=== PATIENT | male | born 1985 | race Caucasian/White ===

== ENCOUNTER 2021-05-02 19:37 | Emergency (ER) ==
[2021-05-02] MEDS ORDERED: Dexamethasone 10 MG/ML VIAL ONE (20:56)
[2021-05-02] MEDS ORDERED: Acetaminophen 500 MG TAB ONE (20:56)
[2021-05-03 13:56] LABS: SARS-CoV-2 PCR by NAA DETECTED (NotDetected)
== END 2021-05-02 22:34 | disposition home or self-care (01) ==
LOC: ERS 19:37
DX: U07.1 COVID-19 (principal)
CPT/HCPCS: 99283; J1100; U0003; U0005

== ENCOUNTER 2021-05-04 11:32 | Inpatient (IN) | payer MEDICARE, SELFPAY ==
[~2021-05-04 11:32] MED LIST: Iopamidol-370 76% 500 ML 1 ML ONE
[2021-05-04] MEDS ORDERED: Dexamethasone 10 MG/ML VIAL ONE (12:03)
[2021-05-04 12:43] LABS: #Basophils 0.1 thou/uL (0.0-0.2); #Monocytes 0.7 thou/uL (0.11-0.59); #Neutrophils 6.9 thou/uL (1.40-6.50); %Basophils 0.6 % (0.0-1.0); %Eosinophils 0.1 % (0.0-10.0); %Lymphocytes 11.2 % (21.0-51.0); %Monocytes 8.2 % (0.0-10.0); %Neutrophils 79.9 % (42.0-75.0); Hemoglobin 17.2 g/dL (14.0-18.0); Mean Corpuscular HGB CONC 33.8 g/dL (32.0-36.0); Mean Corpuscular Hemoglobin 28.8 pg (27.0-31.0); Mean Corpuscular Volume 85.2 fL (78.0-98.0); Mean Platelet Volume 9.4 fL (7.4-10.4); Platelet Count 155 thou/uL (130-400); RBC Distribution Width 12.8 % (11.5-14.5); Red Blood Cell (RBC) Count 5.99 mill/uL (4.70-6.10); White Blood Cell (WBC) Count 8.6 thou/uL (4.8-10.8)
[2021-05-04 12:57] LABS: ALT (SGPT) 190 U/L (8-55); AST (SGOT) 156 U/L (5-34); Albumin 4.1 g/dL (3.5-5.0); Alkaline Phosphatase 87 U/L (40-110); Anion Gap 18 mmol/L (10-20); BUN (Urea Nitrogen) 15 mg/dL (8.9-20.6); Bilirubin, Total 0.9 mg/dL (0.2-1.2); Calc. Creatinine Clearance 0 mL/min (70-130); Calcium 9.7 mg/dL (7.8-10.44); Carbon Dioxide 25 mmol/L (22-29); Chloride 98 mmol/L (98-107); Globulin 3.4 g/dL (2.4-3.5); Glucose 103 mg/dL (70-105); Potassium 4.1 mmol/L (3.5-5.1); Protein, Total 7.5 g/dL (6.0-8.3); Sodium 137 mmol/L (136-145)
[2021-05-04] MEDS ORDERED: Ondansetron PF 4 MG/2 ML Vial IVP PRN (16:08)
[2021-05-04] MEDS: Sodium Chloride 0.9% 1,000 ML IV SCH (18:45)
[2021-05-04] MEDS: Ivermectin 3 MG TAB PO SCH (20:03)
[2021-05-04] MEDS: Cholecalciferol 1,000 UNITS (25 MCG) TAB PO SCH (20:03)
[2021-05-04] MEDS: Guaifenesin DM 100-10/5 ML UDCUP PO PRN (21:37)
[2021-05-05] MEDS: Albuterol 200 PUFF (6.7GM INHALER) INH SCH ×4 (00:10→18:10)
[2021-05-05] MEDS: methylPREDNISolone Sod Succ 40 MG VIAL IVP SCH ×2 (00:10→06:00)
[2021-05-05] MEDS: Acetaminophen 325 MG TAB PO PRN ×2 (00:11→21:39)
[2021-05-05 04:11] LABS: #Lymphocytes 0.9 thou/uL (1.20-3.40); #Monocytes 0.9 thou/uL (0.11-0.59); #Neutrophils 6.7 thou/uL (1.40-6.50); %Basophils 0.1 % (0.0-1.0); %Eosinophils 0.1 % (0.0-10.0); %Lymphocytes 10.7 % (21.0-51.0); %Monocytes 10.1 % (0.0-10.0); %Neutrophils 78.9 % (42.0-75.0); Hemoglobin 15.6 g/dL (14.0-18.0); Mean Corpuscular HGB CONC 35.3 g/dL (32.0-36.0); Mean Corpuscular Hemoglobin 30.2 pg (27.0-31.0); Mean Corpuscular Volume 85.5 fL (78.0-98.0); Mean Platelet Volume 9.5 fL (7.4-10.4); Platelet Count 144 thou/uL (130-400); RBC Distribution Width 12.6 % (11.5-14.5); Red Blood Cell (RBC) Count 5.16 mill/uL (4.70-6.10); White Blood Cell (WBC) Count 8.4 thou/uL (4.8-10.8)
[2021-05-05] MEDS: Guaifenesin DM 100-10/5 ML UDCUP PO PRN ×2 (04:30→21:39)
[2021-05-05] MEDS: Sodium Chloride 0.9% 1,000 ML IV SCH ×3 (04:30→21:40)
[2021-05-05 04:33] LABS: ALT (SGPT) 145 U/L (8-55); AST (SGOT) 107 U/L (5-34); Albumin 3.6 g/dL (3.5-5.0); Alkaline Phosphatase 81 U/L (40-110); Anion Gap 16 mmol/L (10-20); BUN (Urea Nitrogen) 14 mg/dL (8.9-20.6); Bilirubin, Total 0.6 mg/dL (0.2-1.2); Calc. Creatinine Clearance 186 mL/min (70-130); Calcium 8.5 mg/dL (7.8-10.44); Carbon Dioxide 20 mmol/L (22-29); Chloride 102 mmol/L (98-107); Glucose 127 mg/dL (70-105); Potassium 4.4 mmol/L (3.5-5.1); Protein, Total 6.6 g/dL (6.0-8.3); Sodium 134 mmol/L (136-145)
[2021-05-05] MEDS ORDERED: methylPREDNISolone Sod Succ 40 MG VIAL IVP SCH (09:00)
[2021-05-05] MEDS: guaiFENesin ER 600 MG TAB PO SCH ×2 (09:19→20:04)
[2021-05-05] MEDS: Zinc Sulfate 220 MG CAP PO SCH (09:20)
[2021-05-05] MEDS: Ascorbic Acid 500 mg Chewable Tablet PO SCH (09:20)
[2021-05-05] MEDS: Multivit, Therapeutic 1 TAB PO SCH (09:20)
[2021-05-05] MEDS: Enoxaparin Sodium 40 MG/0.4 ML SYRINGE SC SCH (09:20)
[2021-05-05] MEDS: METHYLPREDNISOLONE SOD SUCC IVPB SCH (11:18)
[2021-05-05] MEDS: SODIUM CHLORIDE 0.9% IVPB SCH (11:18)
[2021-05-05] MEDS: Ivermectin 3 MG TAB PO SCH (18:10)
[2021-05-05] MEDS: Cholecalciferol 1,000 UNITS (25 MCG) TAB PO SCH (20:04)
[2021-05-06] MEDS: Guaifenesin DM 100-10/5 ML UDCUP PO PRN ×3 (01:25→20:36)
[2021-05-06] MEDS: Albuterol 200 PUFF (6.7GM INHALER) INH SCH ×4 (01:52→20:38)
[2021-05-06 03:48] LABS: #Lymphocytes 0.8 thou/uL (1.20-3.40); #Monocytes 1.4 thou/uL (0.11-0.59); #Neutrophils 10.3 thou/uL (1.40-6.50); %Basophils 0.1 % (0.0-1.0); %Eosinophils 0.1 % (0.0-10.0); %Lymphocytes 6.5 % (21.0-51.0); %Monocytes 11.1 % (0.0-10.0); %Neutrophils 82.1 % (42.0-75.0); Hemoglobin 14.4 g/dL (14.0-18.0); Mean Corpuscular HGB CONC 35.2 g/dL (32.0-36.0); Mean Corpuscular Hemoglobin 29.9 pg (27.0-31.0); Mean Platelet Volume 9.1 fL (7.4-10.4); Platelet Count 184 thou/uL (130-400); RBC Distribution Width 12.8 % (11.5-14.5); Red Blood Cell (RBC) Count 4.82 mill/uL (4.70-6.10); White Blood Cell (WBC) Count 12.6 thou/uL (4.8-10.8)
[2021-05-06 04:13] LABS: ALT (SGPT) 104 U/L (8-55); AST (SGOT) 74 U/L (5-34); Albumin 3.2 g/dL (3.5-5.0); Alkaline Phosphatase 70 U/L (40-110); Anion Gap 12 mmol/L (10-20); BUN (Urea Nitrogen) 14 mg/dL (8.9-20.6); Bilirubin, Total 0.6 mg/dL (0.2-1.2); CRP (Inflammatory) 0.69 mg/dL (= or < 0.5); Calc. Creatinine Clearance 201 mL/min (70-130); Calcium 7.9 mg/dL (7.8-10.44); Carbon Dioxide 23 mmol/L (22-29); Chloride 107 mmol/L (98-107); Globulin 2.6 g/dL (2.4-3.5); Glucose 144 mg/dL (70-105); Potassium 4.2 mmol/L (3.5-5.1); Protein, Total 5.8 g/dL (6.0-8.3); Sodium 138 mmol/L (136-145)
[2021-05-06] MEDS: Ascorbic Acid 500 mg Chewable Tablet PO SCH (07:53)
[2021-05-06] MEDS: Zinc Sulfate 220 MG CAP PO SCH (07:53)
[2021-05-06] MEDS: Multivit, Therapeutic 1 TAB PO SCH (07:53)
[2021-05-06] MEDS: guaiFENesin ER 600 MG TAB PO SCH ×2 (07:54→20:19)
[2021-05-06] MEDS: Enoxaparin Sodium 40 MG/0.4 ML SYRINGE SC SCH (07:55)
[2021-05-06] MEDS: Sodium Chloride 0.9% 1,000 ML IV SCH ×2 (07:55→10:20)
[2021-05-06] MEDS: SODIUM CHLORIDE 0.9% IVPB SCH (10:20)
[2021-05-06] MEDS: METHYLPREDNISOLONE SOD SUCC IVPB SCH (10:20)
[2021-05-06] MEDS: Ivermectin 3 MG TAB PO SCH (18:17)
[2021-05-06] MEDS ORDERED: Budesonide 0.5 MG/2 ML NEB NEB SCH (18:30)
[2021-05-06] MEDS: Cholecalciferol 1,000 UNITS (25 MCG) TAB PO SCH (20:18)
[2021-05-06] MEDS: Melatonin 3 MG TAB PO SCH (20:18)
[2021-05-06] MEDS: Famotidine 20 MG TAB PO SCH (20:19)
[2021-05-06] MEDS: Acetaminophen 325 MG TAB PO PRN (22:03)
[2021-05-07] MEDS: Albuterol 200 PUFF (6.7GM INHALER) INH SCH ×4 (01:02→17:26)
[2021-05-07] MEDS: Guaifenesin DM 100-10/5 ML UDCUP PO PRN ×2 (03:02→20:50)
[2021-05-07] MEDS: Sodium Chloride 0.65% Nasal 44 ML BOT EA NARE PRN ×2 (03:04→20:50)
[2021-05-07 04:17] LABS: Band 3 % (5-11); Hemoglobin 13.8 g/dL (14.0-18.0); Hypochromia SLIGHT = 6-15 cells (100X) (0-5/hpf); Lymphocytes 12 % (21-51); MDiff Complete? YES; Mean Corpuscular Hemoglobin 29.5 pg (27.0-31.0); Mean Corpuscular Volume 86.8 fL (78.0-98.0); Mean Platelet Volume 8.4 fL (7.4-10.4); Monocytes 10 % (0-10); Neutrophil 75 % (42-75); Platelet Count 216 thou/uL (130-400); Platelet Morphology Comment Appears Adequate; RBC Distribution Width 12.8 % (11.5-14.5); Red Blood Cell (RBC) Count 4.68 mill/uL (4.70-6.10); White Blood Cell (WBC) Count 14.9 thou/uL (4.8-10.8)
[2021-05-07 04:23] LABS: ALT (SGPT) 120 U/L (8-55); AST (SGOT) 82 U/L (5-34); Albumin 3.1 g/dL (3.5-5.0); Alkaline Phosphatase 78 U/L (40-110); Anion Gap 16 mmol/L (10-20); BUN (Urea Nitrogen) 15 mg/dL (8.9-20.6); Bilirubin, Total 0.7 mg/dL (0.2-1.2); Calc. Creatinine Clearance 192 mL/min (70-130); Carbon Dioxide 21 mmol/L (22-29); Chloride 108 mmol/L (98-107); Globulin 2.7 g/dL (2.4-3.5); Glucose 125 mg/dL (70-105); Potassium 4.2 mmol/L (3.5-5.1); Protein, Total 5.8 g/dL (6.0-8.3); Sodium 141 mmol/L (136-145)
[2021-05-07] MEDS ORDERED: Mometasone 100 MCG/PUFF (1 INHALER) INH SCH (06:30)
[2021-05-07] MEDS: Zinc Sulfate 220 MG CAP PO SCH (07:39)
[2021-05-07] MEDS: Ivermectin 3 MG TAB PO SCH (07:39)
[2021-05-07] MEDS: Famotidine 20 MG TAB PO SCH ×2 (07:39→20:49)
[2021-05-07] MEDS: Aspirin 325 MG TAB PO SCH (07:40)
[2021-05-07] MEDS: Ascorbic Acid 500 mg Chewable Tablet PO SCH (07:40)
[2021-05-07] MEDS: guaiFENesin ER 600 MG TAB PO SCH ×2 (07:40→20:49)
[2021-05-07] MEDS: Multivit, Therapeutic 1 TAB PO SCH (07:40)
[2021-05-07] MEDS: Enoxaparin Sodium 40 MG/0.4 ML SYRINGE SC SCH (07:41)
[2021-05-07] MEDS: METHYLPREDNISOLONE SOD SUCC IVPB SCH (09:23)
[2021-05-07] MEDS: SODIUM CHLORIDE 0.9% IVPB SCH ×2 (09:23→20:34)
[2021-05-07] MEDS ORDERED: Piperacillin/Tazobactam 3.375 GM in Sodium Chloride 0.9% 100 ML IVPB SCH (18:00)
[2021-05-07] MEDS: ASCORBIC ACID IVPB SCH (20:34)
[2021-05-07] MEDS: Melatonin 3 MG TAB PO SCH (20:35)
[2021-05-07] MEDS: Cholecalciferol 1,000 UNITS (25 MCG) TAB PO SCH (20:50)
[2021-05-07] MEDS: Colchicine 0.6 MG TAB PO SCH (20:51)
[2021-05-07] MEDS: Piperacillin/Tazobactam 3.375 GM in Sodium Chloride 0.9% 100 ML IVPB SCH (21:25)
[2021-05-08] MEDS: Albuterol 200 PUFF (6.7GM INHALER) INH SCH ×4 (01:37→18:08)
[2021-05-08] MEDS: Furosemide 40 MG/4 ML VIAL SLOW IVP SCH ×2 (05:48→14:35)
[2021-05-08] MEDS: Piperacillin/Tazobactam 3.375 GM in Sodium Chloride 0.9% 100 ML IVPB SCH ×3 (06:31→21:53)
[2021-05-08] MEDS: Aspirin 325 MG TAB PO SCH (09:54)
[2021-05-08] MEDS: METHYLPREDNISOLONE SOD SUCC IVPB SCH (09:54)
[2021-05-08] MEDS: Enoxaparin Sodium 40 MG/0.4 ML SYRINGE SC SCH ×2 (09:54→21:52)
[2021-05-08] MEDS: SODIUM CHLORIDE 0.9% IVPB SCH ×2 (09:54→11:10)
[2021-05-08] MEDS: Colchicine 0.6 MG TAB PO SCH ×2 (09:54→21:52)
[2021-05-08] MEDS: Multivit, Therapeutic 1 TAB PO SCH (09:55)
[2021-05-08] MEDS: guaiFENesin ER 600 MG TAB PO SCH ×2 (09:55→21:51)
[2021-05-08] MEDS: Famotidine 20 MG TAB PO SCH ×2 (09:55→21:52)
[2021-05-08] MEDS: Zinc Sulfate 220 MG CAP PO SCH (09:55)
[2021-05-08] MEDS: ASCORBIC ACID IVPB SCH (11:10)
[2021-05-08] MEDS: Ivermectin 3 MG TAB PO SCH (11:49)
[2021-05-08] MEDS: Melatonin 3 MG TAB PO SCH (21:51)
[2021-05-08] MEDS: Cholecalciferol 1,000 UNITS (25 MCG) TAB PO SCH (21:52)
[2021-05-08] MEDS: Ascorbic Acid 500 mg Chewable Tablet PO SCH (21:52)
[2021-05-08] MEDS: Acetaminophen 325 MG TAB PO PRN (22:18)
[2021-05-09] MEDS: Albuterol 200 PUFF (6.7GM INHALER) INH SCH ×4 (01:43→18:22)
[2021-05-09] MEDS: Piperacillin/Tazobactam 3.375 GM in Sodium Chloride 0.9% 100 ML IVPB SCH ×3 (06:11→21:12)
[2021-05-09] MEDS: Furosemide 40 MG/4 ML VIAL SLOW IVP SCH ×2 (06:11→14:27)
[2021-05-09] MEDS: Zinc Sulfate 220 MG CAP PO SCH (08:27)
[2021-05-09] MEDS: Famotidine 20 MG TAB PO SCH ×2 (08:27→21:10)
[2021-05-09] MEDS: Enoxaparin Sodium 40 MG/0.4 ML SYRINGE SC SCH ×2 (08:27→21:09)
[2021-05-09] MEDS: Aspirin 325 MG TAB PO SCH (08:27)
[2021-05-09] MEDS: guaiFENesin ER 600 MG TAB PO SCH ×2 (08:27→21:10)
[2021-05-09] MEDS: Ascorbic Acid 500 mg Chewable Tablet PO SCH ×2 (08:27→21:10)
[2021-05-09] MEDS: Colchicine 0.6 MG TAB PO SCH ×2 (08:27→21:11)
[2021-05-09] MEDS: Multivit, Therapeutic 1 TAB PO SCH (08:27)
[2021-05-09] MEDS: SODIUM CHLORIDE 0.9% IVPB SCH (09:36)
[2021-05-09] MEDS: METHYLPREDNISOLONE SOD SUCC IVPB SCH (09:36)
[2021-05-09] MEDS: Melatonin 3 MG TAB PO SCH (21:09)
[2021-05-09] MEDS: Cholecalciferol 1,000 UNITS (25 MCG) TAB PO SCH (21:11)
[2021-05-10] MEDS: Albuterol 200 PUFF (6.7GM INHALER) INH SCH ×4 (00:27→20:28)
[2021-05-10] MEDS: Furosemide 40 MG/4 ML VIAL SLOW IVP SCH ×2 (06:04→13:46)
[2021-05-10] MEDS: Piperacillin/Tazobactam 3.375 GM in Sodium Chloride 0.9% 100 ML IVPB SCH ×3 (06:05→22:30)
[2021-05-10] MEDS: SODIUM CHLORIDE 0.9% IVPB SCH (07:10)
[2021-05-10] MEDS: METHYLPREDNISOLONE SOD SUCC IVPB SCH (07:10)
[2021-05-10] MEDS: Ascorbic Acid 500 mg Chewable Tablet PO SCH ×2 (08:04→20:28)
[2021-05-10] MEDS: guaiFENesin ER 600 MG TAB PO SCH ×2 (08:04→20:30)
[2021-05-10] MEDS: Zinc Sulfate 220 MG CAP PO SCH (08:04)
[2021-05-10] MEDS: Multivit, Therapeutic 1 TAB PO SCH (08:04)
[2021-05-10] MEDS: Aspirin 325 MG TAB PO SCH (08:04)
[2021-05-10] MEDS: Enoxaparin Sodium 40 MG/0.4 ML SYRINGE SC SCH ×2 (08:04→20:30)
[2021-05-10] MEDS: Colchicine 0.6 MG TAB PO SCH ×2 (08:04→20:29)
[2021-05-10] MEDS: Famotidine 20 MG TAB PO SCH ×2 (08:04→20:29)
[2021-05-10] MEDS ORDERED: Polyethylene Glycol 3350 17 GM Packet PO PRN (09:03)
[2021-05-10] MEDS: Docusate 100 MG CAP PO SCH ×2 (12:17→20:30)
[2021-05-10] MEDS: Melatonin 3 MG TAB PO SCH (20:29)
[2021-05-10] MEDS: Cholecalciferol 1,000 UNITS (25 MCG) TAB PO SCH (20:30)
[2021-05-11] MEDS: Albuterol 200 PUFF (6.7GM INHALER) INH SCH ×4 (04:56→19:30)
[2021-05-11] MEDS: Piperacillin/Tazobactam 3.375 GM in Sodium Chloride 0.9% 100 ML IVPB SCH ×3 (06:06→21:00)
[2021-05-11 08:58] LABS: #Basophils 0.1 thou/uL (0.0-0.2); #Lymphocytes 0.5 thou/uL (1.20-3.40); #Monocytes 1.5 thou/uL (0.11-0.59); #Neutrophils 11.7 thou/uL (1.40-6.50); %Basophils 0.9 % (0.0-1.0); %Lymphocytes 3.9 % (21.0-51.0); %Monocytes 10.6 % (0.0-10.0); %Neutrophils 84.6 % (42.0-75.0); Hemoglobin 15.7 g/dL (14.0-18.0); Mean Corpuscular HGB CONC 33.7 g/dL (32.0-36.0); Mean Corpuscular Hemoglobin 28.9 pg (27.0-31.0); Mean Corpuscular Volume 85.6 fL (78.0-98.0); Mean Platelet Volume 8.7 fL (7.4-10.4); Platelet Count 377 thou/uL (130-400); RBC Distribution Width 12.9 % (11.5-14.5); Red Blood Cell (RBC) Count 5.44 mill/uL (4.70-6.10); White Blood Cell (WBC) Count 13.8 thou/uL (4.8-10.8)
[2021-05-11 09:18] LABS: Anion Gap 15 mmol/L (10-20); BUN (Urea Nitrogen) 22 mg/dL (8.9-20.6); Calc. Creatinine Clearance 174 mL/min (70-130); Calcium 8.6 mg/dL (7.8-10.44); Carbon Dioxide 26 mmol/L (22-29); Chloride 103 mmol/L (98-107); Glucose 122 mg/dL (70-105); Potassium 4.4 mmol/L (3.5-5.1); Sodium 140 mmol/L (136-145)
[2021-05-11] MEDS: guaiFENesin ER 600 MG TAB PO SCH ×2 (09:26→20:59)
[2021-05-11] MEDS: Ascorbic Acid 500 mg Chewable Tablet PO SCH ×2 (09:26→20:58)
[2021-05-11] MEDS: Aspirin 325 MG TAB PO SCH (09:26)
[2021-05-11] MEDS: Famotidine 20 MG TAB PO SCH ×2 (09:26→20:59)
[2021-05-11] MEDS: Colchicine 0.6 MG TAB PO SCH ×2 (09:26→20:58)
[2021-05-11] MEDS: Multivit, Therapeutic 1 TAB PO SCH (09:26)
[2021-05-11] MEDS: Zinc Sulfate 220 MG CAP PO SCH (09:26)
[2021-05-11] MEDS: Docusate 100 MG CAP PO SCH ×2 (09:26→20:59)
[2021-05-11] MEDS: Enoxaparin Sodium 40 MG/0.4 ML SYRINGE SC SCH ×2 (09:26→20:58)
[2021-05-11] MEDS: METHYLPREDNISOLONE SOD SUCC IVPB SCH (09:27)
[2021-05-11] MEDS: SODIUM CHLORIDE 0.9% IVPB SCH (09:27)
[2021-05-11] MEDS: Melatonin 3 MG TAB PO SCH (20:59)
[2021-05-11] MEDS: Cholecalciferol 1,000 UNITS (25 MCG) TAB PO SCH (20:59)
[2021-05-12] MEDS: Albuterol 200 PUFF (6.7GM INHALER) INH SCH ×4 (00:30→20:00)
[2021-05-12 03:58] LABS: #Basophils 0.1 thou/uL (0.0-0.2); #Lymphocytes 0.6 thou/uL (1.20-3.40); #Monocytes 1.3 thou/uL (0.11-0.59); #Neutrophils 13.2 thou/uL (1.40-6.50); %Basophils 0.5 % (0.0-1.0); %Lymphocytes 3.6 % (21.0-51.0); %Monocytes 8.4 % (0.0-10.0); %Neutrophils 87.4 % (42.0-75.0); Mean Corpuscular HGB CONC 33.6 g/dL (32.0-36.0); Mean Corpuscular Hemoglobin 28.9 pg (27.0-31.0); Mean Corpuscular Volume 85.9 fL (78.0-98.0); Mean Platelet Volume 8.9 fL (7.4-10.4); Platelet Count 363 thou/uL (130-400); RBC Distribution Width 12.8 % (11.5-14.5); Red Blood Cell (RBC) Count 5.19 mill/uL (4.70-6.10)
[2021-05-12 04:16] LABS: Anion Gap 14 mmol/L (10-20); BUN (Urea Nitrogen) 19 mg/dL (8.9-20.6); Calc. Creatinine Clearance 189 mL/min (70-130); Calcium 8.5 mg/dL (7.8-10.44); Carbon Dioxide 23 mmol/L (22-29); Chloride 106 mmol/L (98-107); Glucose 122 mg/dL (70-105); Potassium 4.7 mmol/L (3.5-5.1); Sodium 138 mmol/L (136-145)
[2021-05-12] MEDS: Piperacillin/Tazobactam 3.375 GM in Sodium Chloride 0.9% 100 ML IVPB SCH ×3 (06:36→20:59)
[2021-05-12] MEDS: Zinc Sulfate 220 MG CAP PO SCH (07:48)
[2021-05-12] MEDS: Ascorbic Acid 500 mg Chewable Tablet PO SCH ×2 (07:48→20:58)
[2021-05-12] MEDS: Docusate 100 MG CAP PO SCH ×2 (07:48→20:56)
[2021-05-12] MEDS: Colchicine 0.6 MG TAB PO SCH ×2 (07:48→20:58)
[2021-05-12] MEDS: Multivit, Therapeutic 1 TAB PO SCH (07:48)
[2021-05-12] MEDS: Famotidine 20 MG TAB PO SCH ×2 (07:48→20:56)
[2021-05-12] MEDS: Enoxaparin Sodium 40 MG/0.4 ML SYRINGE SC SCH ×2 (07:49→20:55)
[2021-05-12] MEDS: guaiFENesin ER 600 MG TAB PO SCH ×2 (07:49→20:58)
[2021-05-12] MEDS: Aspirin 325 MG TAB PO SCH (07:49)
[2021-05-12] MEDS: SODIUM CHLORIDE 0.9% IVPB SCH (07:49)
[2021-05-12] MEDS: METHYLPREDNISOLONE SOD SUCC IVPB SCH (07:49)
[2021-05-12] MEDS: Cholecalciferol 1,000 UNITS (25 MCG) TAB PO SCH (20:57)
[2021-05-12] MEDS: Melatonin 3 MG TAB PO SCH (20:57)
[2021-05-13] MEDS: Albuterol 200 PUFF (6.7GM INHALER) INH SCH ×4 (02:53→20:09)
[2021-05-13 03:41] LABS: #Basophils 0.1 thou/uL (0.0-0.2); #Lymphocytes 0.5 thou/uL (1.20-3.40); #Neutrophils 13.6 thou/uL (1.40-6.50); %Basophils 0.6 % (0.0-1.0); %Eosinophils 0.1 % (0.0-10.0); %Lymphocytes 3.1 % (21.0-51.0); %Monocytes 6.4 % (0.0-10.0); %Neutrophils 89.8 % (42.0-75.0); Hemoglobin 15.1 g/dL (14.0-18.0); Mean Corpuscular HGB CONC 31.8 g/dL (32.0-36.0); Mean Corpuscular Hemoglobin 27.5 pg (27.0-31.0); Mean Corpuscular Volume 86.5 fL (78.0-98.0); Platelet Count 374 thou/uL (130-400); RBC Distribution Width 13.1 % (11.5-14.5); White Blood Cell (WBC) Count 15.1 thou/uL (4.8-10.8)
[2021-05-13 04:00] LABS: Anion Gap 14 mmol/L (10-20); BUN (Urea Nitrogen) 19 mg/dL (8.9-20.6); Calc. Creatinine Clearance 170 mL/min (70-130); Calcium 8.7 mg/dL (7.8-10.44); Carbon Dioxide 23 mmol/L (22-29); Chloride 105 mmol/L (98-107); Glucose 115 mg/dL (70-105); Potassium 4.9 mmol/L (3.5-5.1); Sodium 137 mmol/L (136-145)
[2021-05-13] MEDS: guaiFENesin ER 600 MG TAB PO SCH ×2 (07:17→20:12)
[2021-05-13] MEDS: Famotidine 20 MG TAB PO SCH ×2 (07:17→20:12)
[2021-05-13] MEDS: Enoxaparin Sodium 40 MG/0.4 ML SYRINGE SC SCH ×2 (07:17→20:13)
[2021-05-13] MEDS: Docusate 100 MG CAP PO SCH ×2 (07:18→20:12)
[2021-05-13] MEDS: Multivit, Therapeutic 1 TAB PO SCH (07:18)
[2021-05-13] MEDS: Ascorbic Acid 500 mg Chewable Tablet PO SCH ×2 (07:18→20:12)
[2021-05-13] MEDS: Aspirin 325 MG TAB PO SCH (07:18)
[2021-05-13] MEDS: Zinc Sulfate 220 MG CAP PO SCH (07:18)
[2021-05-13] MEDS: Colchicine 0.6 MG TAB PO SCH ×2 (07:18→20:13)
[2021-05-13] MEDS: SODIUM CHLORIDE 0.9% IVPB SCH (07:18)
[2021-05-13] MEDS: METHYLPREDNISOLONE SOD SUCC IVPB SCH (07:18)
[2021-05-13] MEDS: Melatonin 3 MG TAB PO SCH (20:10)
[2021-05-13] MEDS: Cholecalciferol 1,000 UNITS (25 MCG) TAB PO SCH (20:11)
[2021-05-14] MEDS: Albuterol 200 PUFF (6.7GM INHALER) INH SCH ×4 (01:20→18:19)
[2021-05-14 03:57] LABS: #Lymphocytes 0.4 thou/uL (1.20-3.40); #Monocytes 1.2 thou/uL (0.11-0.59); #Neutrophils 17.3 thou/uL (1.40-6.50); %Basophils 0.2 % (0.0-1.0); %Eosinophils 0.1 % (0.0-10.0); %Lymphocytes 2.3 % (21.0-51.0); %Monocytes 6.3 % (0.0-10.0); %Neutrophils 91.2 % (42.0-75.0); Hemoglobin 15.4 g/dL (14.0-18.0); Mean Corpuscular HGB CONC 33.3 g/dL (32.0-36.0); Mean Corpuscular Hemoglobin 28.7 pg (27.0-31.0); Mean Corpuscular Volume 86.4 fL (78.0-98.0); Platelet Count 382 thou/uL (130-400); RBC Distribution Width 13.3 % (11.5-14.5); Red Blood Cell (RBC) Count 5.35 mill/uL (4.70-6.10)
[2021-05-14 04:23] LABS: Anion Gap 14 mmol/L (10-20); BUN (Urea Nitrogen) 19 mg/dL (8.9-20.6); Calc. Creatinine Clearance 200 mL/min (70-130); Calcium 8.5 mg/dL (7.8-10.44); Carbon Dioxide 22 mmol/L (22-29); Chloride 105 mmol/L (98-107); Glucose 119 mg/dL (70-105); Potassium 4.6 mmol/L (3.5-5.1); Sodium 136 mmol/L (136-145)
[2021-05-14] MEDS: SODIUM CHLORIDE 0.9% IVPB SCH (06:36)
[2021-05-14] MEDS: METHYLPREDNISOLONE SOD SUCC IVPB SCH (06:36)
[2021-05-14] MEDS: Colchicine 0.6 MG TAB PO SCH ×2 (08:46→20:15)
[2021-05-14] MEDS: Multivit, Therapeutic 1 TAB PO SCH (08:46)
[2021-05-14] MEDS: Aspirin 325 MG TAB PO SCH (08:46)
[2021-05-14] MEDS: Zinc Sulfate 220 MG CAP PO SCH (08:46)
[2021-05-14] MEDS: Famotidine 20 MG TAB PO SCH ×2 (08:46→20:15)
[2021-05-14] MEDS: Docusate 100 MG CAP PO SCH ×2 (08:46→20:15)
[2021-05-14] MEDS: guaiFENesin ER 600 MG TAB PO SCH ×2 (08:46→20:15)
[2021-05-14] MEDS: Ascorbic Acid 500 mg Chewable Tablet PO SCH ×2 (08:47→20:14)
[2021-05-14] MEDS: Enoxaparin Sodium 40 MG/0.4 ML SYRINGE SC SCH ×2 (08:47→20:13)
[2021-05-14] MEDS: Cholecalciferol 1,000 UNITS (25 MCG) TAB PO SCH (20:14)
[2021-05-14] MEDS: Melatonin 3 MG TAB PO SCH (20:15)
[2021-05-15] MEDS: Albuterol 200 PUFF (6.7GM INHALER) INH SCH ×4 (01:34→18:37)
[2021-05-15 04:01] LABS: #Lymphocytes 0.6 thou/uL (1.20-3.40); #Monocytes 1.3 thou/uL (0.11-0.59); %Basophils 0.2 % (0.0-1.0); %Eosinophils 0.1 % (0.0-10.0); %Lymphocytes 2.9 % (21.0-51.0); %Monocytes 7.1 % (0.0-10.0); %Neutrophils 89.7 % (42.0-75.0); Hemoglobin 14.9 g/dL (14.0-18.0); Mean Corpuscular HGB CONC 32.5 g/dL (32.0-36.0); Mean Corpuscular Hemoglobin 27.9 pg (27.0-31.0); Mean Corpuscular Volume 85.7 fL (78.0-98.0); Mean Platelet Volume 9.2 fL (7.4-10.4); Platelet Count 405 thou/uL (130-400); RBC Distribution Width 13.6 % (11.5-14.5); Red Blood Cell (RBC) Count 5.34 mill/uL (4.70-6.10)
[2021-05-15 04:25] LABS: Anion Gap 15 mmol/L (10-20); BUN (Urea Nitrogen) 19 mg/dL (8.9-20.6); Calc. Creatinine Clearance 208 mL/min (70-130); Calcium 8.7 mg/dL (7.8-10.44); Carbon Dioxide 21 mmol/L (22-29); Chloride 106 mmol/L (98-107); Glucose 122 mg/dL (70-105); Potassium 4.6 mmol/L (3.5-5.1); Sodium 137 mmol/L (136-145)
[2021-05-15] MEDS: SODIUM CHLORIDE 0.9% IVPB SCH (05:30)
[2021-05-15] MEDS: METHYLPREDNISOLONE SOD SUCC IVPB SCH (05:30)
[2021-05-15] MEDS: Colchicine 0.6 MG TAB PO SCH ×2 (10:43→20:34)
[2021-05-15] MEDS: guaiFENesin ER 600 MG TAB PO SCH ×2 (10:43→20:35)
[2021-05-15] MEDS: Multivit, Therapeutic 1 TAB PO SCH (10:43)
[2021-05-15] MEDS: Famotidine 20 MG TAB PO SCH ×2 (10:43→20:36)
[2021-05-15] MEDS: Aspirin 325 MG TAB PO SCH (10:43)
[2021-05-15] MEDS: Docusate 100 MG CAP PO SCH ×2 (10:44→20:36)
[2021-05-15] MEDS: Ascorbic Acid 500 mg Chewable Tablet PO SCH ×2 (10:44→20:35)
[2021-05-15] MEDS: Ivermectin 3 MG TAB PO SCH (10:44)
[2021-05-15] MEDS: Zinc Sulfate 220 MG CAP PO SCH (10:44)
[2021-05-15] MEDS: Enoxaparin Sodium 40 MG/0.4 ML SYRINGE SC SCH ×2 (10:44→20:36)
[2021-05-15] MEDS: Cholecalciferol 1,000 UNITS (25 MCG) TAB PO SCH (20:34)
[2021-05-15] MEDS: Melatonin 3 MG TAB PO SCH (20:35)
[2021-05-16] MEDS: Albuterol 200 PUFF (6.7GM INHALER) INH SCH ×5 (01:26→23:49)
[2021-05-16 04:04] LABS: Anion Gap 14 mmol/L (10-20); BUN (Urea Nitrogen) 19 mg/dL (8.9-20.6); Calc. Creatinine Clearance 211 mL/min (70-130); Calcium 8.7 mg/dL (7.8-10.44); Carbon Dioxide 23 mmol/L (22-29); Chloride 105 mmol/L (98-107); Glucose 115 mg/dL (70-105); Potassium 4.5 mmol/L (3.5-5.1); Sodium 137 mmol/L (136-145)
[2021-05-16 04:59] LABS: Band 2 % (5-11); Hemoglobin 15.5 g/dL (14.0-18.0); Lymphocytes 3 % (21-51); MDiff Complete? YES; Mean Corpuscular Hemoglobin 28.7 pg (27.0-31.0); Mean Corpuscular Volume 86.9 fL (78.0-98.0); Mean Platelet Volume 9.2 fL (7.4-10.4); Monocytes 11 % (0-10); Myelocyte 1 % (0-0); Neutrophil 83 % (42-75); Platelet Count 379 thou/uL (130-400); RBC Distribution Width 13.8 % (11.5-14.5); Red Blood Cell (RBC) Count 5.38 mill/uL (4.70-6.10); White Blood Cell (WBC) Count 18.3 thou/uL (4.8-10.8)
[2021-05-16] MEDS: SODIUM CHLORIDE 0.9% IVPB SCH (05:23)
[2021-05-16] MEDS: METHYLPREDNISOLONE SOD SUCC IVPB SCH (05:23)
[2021-05-16] MEDS: Aspirin 325 MG TAB PO SCH (08:54)
[2021-05-16] MEDS: Ascorbic Acid 500 mg Chewable Tablet PO SCH ×2 (08:54→21:15)
[2021-05-16] MEDS: Famotidine 20 MG TAB PO SCH ×2 (08:54→21:16)
[2021-05-16] MEDS: Docusate 100 MG CAP PO SCH ×2 (08:54→21:16)
[2021-05-16] MEDS: Zinc Sulfate 220 MG CAP PO SCH (08:54)
[2021-05-16] MEDS: guaiFENesin ER 600 MG TAB PO SCH ×2 (08:54→21:16)
[2021-05-16] MEDS: Multivit, Therapeutic 1 TAB PO SCH (08:54)
[2021-05-16] MEDS: Enoxaparin Sodium 40 MG/0.4 ML SYRINGE SC SCH ×2 (08:54→21:16)
[2021-05-16] MEDS: Colchicine 0.6 MG TAB PO SCH ×2 (08:54→21:16)
[2021-05-16] MEDS: Cholecalciferol 1,000 UNITS (25 MCG) TAB PO SCH (21:15)
[2021-05-16] MEDS: Melatonin 3 MG TAB PO SCH (21:16)
[2021-05-17 06:19] LABS: Anion Gap 11 mmol/L (10-20); BUN (Urea Nitrogen) 19 mg/dL (8.9-20.6); Calc. Creatinine Clearance 189 mL/min (70-130); Calcium 8.6 mg/dL (7.8-10.44); Carbon Dioxide 25 mmol/L (22-29); Chloride 104 mmol/L (98-107); Glucose 116 mg/dL (70-105); Potassium 4.4 mmol/L (3.5-5.1); Sodium 136 mmol/L (136-145)
[2021-05-17 06:20] LABS: #Basophils 0.1 thou/uL (0.0-0.2); #Lymphocytes 0.6 thou/uL (1.20-3.40); #Monocytes 1.3 thou/uL (0.11-0.59); %Basophils 0.6 % (0.0-1.0); %Eosinophils 0.3 % (0.0-10.0); %Lymphocytes 3.5 % (21.0-51.0); %Monocytes 7.7 % (0.0-10.0); Hemoglobin 15.1 g/dL (14.0-18.0); Mean Corpuscular HGB CONC 32.5 g/dL (32.0-36.0); Mean Corpuscular Hemoglobin 28.4 pg (27.0-31.0); Mean Corpuscular Volume 87.4 fL (78.0-98.0); Mean Platelet Volume 9.4 fL (7.4-10.4); Platelet Count 352 thou/uL (130-400); RBC Distribution Width 14.2 % (11.5-14.5); White Blood Cell (WBC) Count 17.1 thou/uL (4.8-10.8)
[2021-05-17] MEDS: Albuterol 200 PUFF (6.7GM INHALER) INH SCH ×3 (08:32→18:44)
[2021-05-17] MEDS: Ascorbic Acid 500 mg Chewable Tablet PO SCH ×2 (09:29→20:49)
[2021-05-17] MEDS: Famotidine 20 MG TAB PO SCH ×2 (09:30→20:49)
[2021-05-17] MEDS: Zinc Sulfate 220 MG CAP PO SCH (09:30)
[2021-05-17] MEDS: Aspirin 325 MG TAB PO SCH (09:30)
[2021-05-17] MEDS: Multivit, Therapeutic 1 TAB PO SCH (09:31)
[2021-05-17] MEDS: guaiFENesin ER 600 MG TAB PO SCH ×2 (09:32→20:48)
[2021-05-17] MEDS: Docusate 100 MG CAP PO SCH ×2 (09:32→20:50)
[2021-05-17] MEDS: Enoxaparin Sodium 40 MG/0.4 ML SYRINGE SC SCH ×2 (09:32→20:48)
[2021-05-17] MEDS: Colchicine 0.6 MG TAB PO SCH ×2 (09:35→20:49)
[2021-05-17] MEDS: SODIUM CHLORIDE 0.9% IVPB SCH (09:36)
[2021-05-17] MEDS: METHYLPREDNISOLONE SOD SUCC IVPB SCH (09:36)
[2021-05-17] MEDS: Cholecalciferol 1,000 UNITS (25 MCG) TAB PO SCH (20:49)
[2021-05-17] MEDS: Melatonin 3 MG TAB PO SCH (20:49)
[2021-05-17] MEDS: Calcium Carbonate 500 MG ChewTAB PO PRN (20:50)
[2021-05-17] MEDS: Guaifenesin DM 100-10/5 ML UDCUP PO PRN (20:51)
[2021-05-18] MEDS: Albuterol 200 PUFF (6.7GM INHALER) INH SCH ×3 (01:09→14:49)
[2021-05-18] MEDS: SODIUM CHLORIDE 0.9% IVPB SCH (03:51)
[2021-05-18] MEDS: METHYLPREDNISOLONE SOD SUCC IVPB SCH (03:51)
[2021-05-18 03:54] LABS: #Eosinphils 0.1 thou/uL (0.0-0.7); #Lymphocytes 0.9 thou/uL (1.20-3.40); #Monocytes 1.6 thou/uL (0.11-0.59); #Neutrophils 16.9 thou/uL (1.40-6.50); %Basophils 0.2 % (0.0-1.0); %Eosinophils 0.3 % (0.0-10.0); %Lymphocytes 4.5 % (21.0-51.0); %Monocytes 8.2 % (0.0-10.0); %Neutrophils 86.8 % (42.0-75.0); Hemoglobin 15.3 g/dL (14.0-18.0); Mean Corpuscular HGB CONC 33.2 g/dL (32.0-36.0); Mean Corpuscular Hemoglobin 28.8 pg (27.0-31.0); Mean Corpuscular Volume 86.7 fL (78.0-98.0); Platelet Count 325 thou/uL (130-400); RBC Distribution Width 13.9 % (11.5-14.5); Red Blood Cell (RBC) Count 5.31 mill/uL (4.70-6.10); White Blood Cell (WBC) Count 19.5 thou/uL (4.8-10.8)
[2021-05-18 04:15] LABS: Anion Gap 13 mmol/L (10-20); BUN (Urea Nitrogen) 16 mg/dL (8.9-20.6); Calc. Creatinine Clearance 199 mL/min (70-130); Calcium 8.7 mg/dL (7.8-10.44); Carbon Dioxide 24 mmol/L (22-29); Chloride 105 mmol/L (98-107); Glucose 116 mg/dL (70-105); Potassium 4.2 mmol/L (3.5-5.1); Sodium 138 mmol/L (136-145)
[2021-05-18] MEDS: Acetaminophen 325 MG TAB PO PRN ×2 (09:36→15:23)
[2021-05-18] MEDS: Zinc Sulfate 220 MG CAP PO SCH (09:36)
[2021-05-18] MEDS: guaiFENesin ER 600 MG TAB PO SCH ×2 (09:36→21:48)
[2021-05-18] MEDS: Aspirin 325 MG TAB PO SCH (09:36)
[2021-05-18] MEDS: Colchicine 0.6 MG TAB PO SCH (09:36)
[2021-05-18] MEDS: Multivit, Therapeutic 1 TAB PO SCH (09:36)
[2021-05-18] MEDS: Famotidine 20 MG TAB PO SCH ×2 (09:36→21:48)
[2021-05-18] MEDS: Ascorbic Acid 500 mg Chewable Tablet PO SCH ×2 (09:36→21:40)
[2021-05-18] MEDS: Enoxaparin Sodium 40 MG/0.4 ML SYRINGE SC SCH ×2 (09:38→21:48)
[2021-05-18] MEDS: Docusate 100 MG CAP PO SCH ×2 (09:38→22:12)
[2021-05-18] MEDS ORDERED: Acetaminophen/Codeine 30-300mg Tablet PO PRN (13:38)
[2021-05-18] MEDS ORDERED: Benzonatate 100 MG CAP PO PRN ×2 (13:38→14:25)
[2021-05-18] MEDS: Cyclobenzaprine 10 MG TAB PO PRN (15:23)
[2021-05-18] MEDS: Guaifenesin DM 100-10/5 ML UDCUP PO PRN ×2 (15:24→22:51)
[2021-05-18] MEDS: Cholecalciferol 1,000 UNITS (25 MCG) TAB PO SCH (21:40)
[2021-05-18] MEDS: Melatonin 3 MG TAB PO SCH (21:45)
[2021-05-18] MEDS: Acetaminophen/Codeine 30-300mg Tablet PO PRN (23:12)
[2021-05-19 04:02] LABS: #Lymphocytes 0.6 thou/uL (1.20-3.40); #Monocytes 1.4 thou/uL (0.11-0.59); #Neutrophils 15.6 thou/uL (1.40-6.50); %Basophils 0.2 % (0.0-1.0); %Eosinophils 0.2 % (0.0-10.0); %Lymphocytes 3.5 % (21.0-51.0); %Monocytes 7.9 % (0.0-10.0); %Neutrophils 88.1 % (42.0-75.0); Hemoglobin 14.9 g/dL (14.0-18.0); Mean Corpuscular HGB CONC 32.4 g/dL (32.0-36.0); Mean Corpuscular Hemoglobin 28.5 pg (27.0-31.0); Mean Corpuscular Volume 87.8 fL (78.0-98.0); Mean Platelet Volume 9.1 fL (7.4-10.4); Platelet Count 303 thou/uL (130-400); RBC Distribution Width 14.5 % (11.5-14.5); Red Blood Cell (RBC) Count 5.22 mill/uL (4.70-6.10); White Blood Cell (WBC) Count 17.7 thou/uL (4.8-10.8)
[2021-05-19 04:19] LABS: Anion Gap 13 mmol/L (10-20); BUN (Urea Nitrogen) 15 mg/dL (8.9-20.6); Calc. Creatinine Clearance 194 mL/min (70-130); Calcium 8.6 mg/dL (7.8-10.44); Carbon Dioxide 22 mmol/L (22-29); Chloride 107 mmol/L (98-107); Glucose 114 mg/dL (70-105); Potassium 4.7 mmol/L (3.5-5.1); Sodium 137 mmol/L (136-145)
[2021-05-19] MEDS: METHYLPREDNISOLONE SOD SUCC IVPB SCH (06:53)
[2021-05-19] MEDS: SODIUM CHLORIDE 0.9% IVPB SCH (06:53)
[2021-05-19] MEDS: Docusate 100 MG CAP PO SCH ×2 (08:21→20:14)
[2021-05-19] MEDS: Multivit, Therapeutic 1 TAB PO SCH (08:21)
[2021-05-19] MEDS: Aspirin 325 MG TAB PO SCH (08:21)
[2021-05-19] MEDS: guaiFENesin ER 600 MG TAB PO SCH ×2 (08:21→20:13)
[2021-05-19] MEDS: Enoxaparin Sodium 40 MG/0.4 ML SYRINGE SC SCH ×2 (08:21→20:12)
[2021-05-19] MEDS: Colchicine 0.6 MG TAB PO SCH (08:21)
[2021-05-19] MEDS: Famotidine 20 MG TAB PO SCH ×2 (08:21→20:13)
[2021-05-19] MEDS: Guaifenesin DM 100-10/5 ML UDCUP PO PRN (08:22)
[2021-05-19] MEDS: Zinc Sulfate 220 MG CAP PO SCH (08:26)
[2021-05-19] MEDS: Ascorbic Acid 500 mg Chewable Tablet PO SCH ×2 (08:26→20:12)
[2021-05-19] MEDS: Acetaminophen/Codeine 30-300mg Tablet PO PRN (08:54)
[2021-05-19] MEDS ORDERED: Vancomycin 1 GM in Premix Bag 1 BAG IVPB SCH (11:00)
[2021-05-19 11:47] LABS: Actual Bicarbonate (HCO3a) 22.9 mEq/L (22-28); Base Excess (BEa) -0.9 mEq/L (-2.0 to +3.0); CO2 Tension 35.9 mmHg (35.0-45.0); Calcium, Ionized (arterial) 1.19 mmol/L (1.12-1.30); Hemoglobin (Hb) 16.4 g/dL (14.0-18.0); pH, Arterial 7.42 (7.35-7.45)
[2021-05-19 11:50] LABS: Puncture Site RRA
[2021-05-19 11:51] LABS: ALV-art Gradient 467.655 mmHg (0-20)
[2021-05-19] MEDS ORDERED: MEROPENEM 1 GM/50 ML 1 GM in Premix Bag 1 BAG IVPB SCH (12:00)
[2021-05-19] MEDS ORDERED: Meropenem 2 GM in Admixture Fee 1 EACH IVPB SCH (14:00)
[2021-05-19] MEDS: Vancomycin 1 GM in Premix Bag 1 BAG IVPB SCH (16:40)
[2021-05-19] MEDS: MEROPENEM 1 GM/50 ML 1 GM in Premix Bag 1 BAG IVPB SCH (20:12)
[2021-05-19] MEDS: Cholecalciferol 1,000 UNITS (25 MCG) TAB PO SCH (20:13)
[2021-05-19] MEDS: Melatonin 3 MG TAB PO SCH (20:13)
[2021-05-20] MEDS: Vancomycin 1 GM in Premix Bag 1 BAG IVPB SCH ×2 (03:07→15:12)
[2021-05-20] MEDS: MEROPENEM 1 GM/50 ML 1 GM in Premix Bag 1 BAG IVPB SCH ×3 (04:15→20:03)
[2021-05-20 05:42] LABS: #Eosinphils 0.1 thou/uL (0.0-0.7); #Lymphocytes 0.7 thou/uL (1.20-3.40); #Monocytes 1.3 thou/uL (0.11-0.59); %Basophils 0.2 % (0.0-1.0); %Eosinophils 0.4 % (0.0-10.0); %Lymphocytes 3.9 % (21.0-51.0); %Neutrophils 88.6 % (42.0-75.0); Hemoglobin 14.9 g/dL (14.0-18.0); Mean Corpuscular HGB CONC 32.7 g/dL (32.0-36.0); Mean Corpuscular Hemoglobin 28.8 pg (27.0-31.0); Mean Corpuscular Volume 88.1 fL (78.0-98.0); Mean Platelet Volume 9.5 fL (7.4-10.4); Platelet Count 282 thou/uL (130-400); RBC Distribution Width 14.8 % (11.5-14.5); Red Blood Cell (RBC) Count 5.17 mill/uL (4.70-6.10)
[2021-05-20 06:02] LABS: Anion Gap 12 mmol/L (10-20); BUN (Urea Nitrogen) 17 mg/dL (8.9-20.6); Calc. Creatinine Clearance 189 mL/min (70-130); Carbon Dioxide 27 mmol/L (22-29); Chloride 104 mmol/L (98-107); Glucose 115 mg/dL (70-105); Potassium 4.3 mmol/L (3.5-5.1); Sodium 139 mmol/L (136-145)
[2021-05-20] MEDS: Famotidine 20 MG TAB PO SCH ×2 (08:05→21:41)
[2021-05-20] MEDS: Multivit, Therapeutic 1 TAB PO SCH (08:06)
[2021-05-20] MEDS: Zinc Sulfate 220 MG CAP PO SCH (08:06)
[2021-05-20] MEDS: Ascorbic Acid 500 mg Chewable Tablet PO SCH ×2 (08:06→21:41)
[2021-05-20] MEDS: Docusate 100 MG CAP PO SCH ×2 (08:06→21:42)
[2021-05-20] MEDS: Enoxaparin Sodium 40 MG/0.4 ML SYRINGE SC SCH ×2 (08:07→21:42)
[2021-05-20] MEDS: guaiFENesin ER 600 MG TAB PO SCH ×2 (08:07→21:41)
[2021-05-20] MEDS: Aspirin 325 MG TAB PO SCH (08:10)
[2021-05-20] MEDS: Colchicine 0.6 MG TAB PO SCH (08:10)
[2021-05-20] MEDS: METHYLPREDNISOLONE SOD SUCC IVPB SCH (08:11)
[2021-05-20] MEDS: SODIUM CHLORIDE 0.9% IVPB SCH (08:11)
[2021-05-20] MEDS ORDERED: Lorazepam 1 MG TAB PO SCH (15:15)
[2021-05-20] MEDS: Melatonin 3 MG TAB PO SCH (21:41)
[2021-05-20] MEDS: Cholecalciferol 1,000 UNITS (25 MCG) TAB PO SCH (21:42)
[2021-05-21] MEDS: Vancomycin 1 GM in Premix Bag 1 BAG IVPB SCH ×2 (03:11→16:55)
[2021-05-21 04:09] LABS: Hemoglobin 15.2 g/dL (14.0-18.0); Mean Corpuscular HGB CONC 33.5 g/dL (32.0-36.0); Mean Corpuscular Hemoglobin 29.5 pg (27.0-31.0); Mean Corpuscular Volume 88.1 fL (78.0-98.0); Platelet Count 256 thou/uL (130-400); RBC Distribution Width 14.9 % (11.5-14.5); Red Blood Cell (RBC) Count 5.15 mill/uL (4.70-6.10); White Blood Cell (WBC) Count 19.1 thou/uL (4.8-10.8)
[2021-05-21 04:20] LABS: Anion Gap 11 mmol/L (10-20); BUN (Urea Nitrogen) 16 mg/dL (8.9-20.6); Calc. Creatinine Clearance 197 mL/min (70-130); Calcium 8.7 mg/dL (7.8-10.44); Carbon Dioxide 28 mmol/L (22-29); Chloride 103 mmol/L (98-107); Glucose 129 mg/dL (70-105); Potassium 4.4 mmol/L (3.5-5.1); Sodium 138 mmol/L (136-145)
[2021-05-21] MEDS: MEROPENEM 1 GM/50 ML 1 GM in Premix Bag 1 BAG IVPB SCH ×3 (04:27→20:14)
[2021-05-21 04:36] LABS: Lymphocytes 1 % (21-51); MDiff Complete? YES; Metamyelocyte 1 % (0-0); Monocytes 2 % (0-10); Neutrophil 94 % (42-75); Platelet Morphology Comment Appears Adequate; Reactive Lymphocytes 2 % (0-10)
[2021-05-21] MEDS: Ascorbic Acid 500 mg Chewable Tablet PO SCH ×2 (08:25→21:01)
[2021-05-21] MEDS: Colchicine 0.6 MG TAB PO SCH (08:26)
[2021-05-21] MEDS: Zinc Sulfate 220 MG CAP PO SCH (08:26)
[2021-05-21] MEDS: Multivit, Therapeutic 1 TAB PO SCH (08:26)
[2021-05-21] MEDS: Famotidine 20 MG TAB PO SCH ×2 (08:26→21:01)
[2021-05-21] MEDS: Docusate 100 MG CAP PO SCH ×2 (08:26→21:02)
[2021-05-21] MEDS: Aspirin 325 MG TAB PO SCH (08:26)
[2021-05-21] MEDS: Enoxaparin Sodium 40 MG/0.4 ML SYRINGE SC SCH ×2 (08:26→21:00)
[2021-05-21] MEDS: guaiFENesin ER 600 MG TAB PO SCH ×2 (08:27→21:00)
[2021-05-21] MEDS: METHYLPREDNISOLONE SOD SUCC IVPB SCH (08:29)
[2021-05-21] MEDS: SODIUM CHLORIDE 0.9% IVPB SCH (08:29)
[2021-05-21] MEDS: Cholecalciferol 1,000 UNITS (25 MCG) TAB PO SCH (21:00)
[2021-05-21] MEDS: Melatonin 3 MG TAB PO SCH (21:00)
[2021-05-21] MEDS: clonazePAM 0.5 MG TAB PO SCH (21:02)
[2021-05-22] MEDS: Vancomycin 1 GM in Premix Bag 1 BAG IVPB SCH (03:44)
[2021-05-22 04:04] LABS: Band 3 % (5-11); Hemoglobin 16.6 g/dL (14.0-18.0); Lymphocytes 3 % (21-51); MDiff Complete? YES; Mean Corpuscular HGB CONC 33.3 g/dL (32.0-36.0); Mean Corpuscular Hemoglobin 29.3 pg (27.0-31.0); Mean Corpuscular Volume 87.9 fL (78.0-98.0); Monocytes 11 % (0-10); Neutrophil 82 % (42-75); Platelet Count 270 thou/uL (130-400); Platelet Morphology Comment Appears Adequate; RBC Morphology Normal; Reactive Lymphocytes 1 % (0-10); Red Blood Cell (RBC) Count 5.67 mill/uL (4.70-6.10); White Blood Cell (WBC) Count 21.6 thou/uL (4.8-10.8)
[2021-05-22 04:14] LABS: Anion Gap 14 mmol/L (10-20); BUN (Urea Nitrogen) 20 mg/dL (8.9-20.6); Calc. Creatinine Clearance 190 mL/min (70-130); Calcium 9.1 mg/dL (7.8-10.44); Carbon Dioxide 26 mmol/L (22-29); Chloride 103 mmol/L (98-107); Glucose 111 mg/dL (70-105); Potassium 4.4 mmol/L (3.5-5.1); Sodium 139 mmol/L (136-145)
[2021-05-22] MEDS: MEROPENEM 1 GM/50 ML 1 GM in Premix Bag 1 BAG IVPB SCH ×3 (04:50→20:00)
[2021-05-22] MEDS: Enoxaparin Sodium 40 MG/0.4 ML SYRINGE SC SCH ×2 (09:14→20:08)
[2021-05-22] MEDS: clonazePAM 0.5 MG TAB PO SCH (09:15)
[2021-05-22] MEDS: Docusate 100 MG CAP PO SCH ×2 (09:15→20:09)
[2021-05-22] MEDS: guaiFENesin ER 600 MG TAB PO SCH ×2 (09:15→20:08)
[2021-05-22] MEDS: Multivit, Therapeutic 1 TAB PO SCH (09:15)
[2021-05-22] MEDS: Aspirin 325 MG TAB PO SCH (09:15)
[2021-05-22] MEDS: Famotidine 20 MG TAB PO SCH ×2 (09:15→20:07)
[2021-05-22] MEDS: Colchicine 0.6 MG TAB PO SCH (09:16)
[2021-05-22] MEDS: Zinc Sulfate 220 MG CAP PO SCH (09:16)
[2021-05-22] MEDS: SODIUM CHLORIDE 0.9% IVPB SCH (09:16)
[2021-05-22] MEDS: METHYLPREDNISOLONE SOD SUCC IVPB SCH (09:16)
[2021-05-22] MEDS: Ascorbic Acid 500 mg Chewable Tablet PO SCH ×2 (09:16→20:08)
[2021-05-22] MEDS: Ivermectin 3 MG TAB PO SCH (10:15)
[2021-05-22] MEDS ORDERED: Electrolyte Replacement Protocol 1 EACH FS ONE (10:55)
[2021-05-22] MEDS ORDERED: Propofol 1,000 MG/100 ML VIAL IV ONE (11:01)
[2021-05-22] MEDS ORDERED: Electrolyte Replacement Protocol FS PRN (11:15)
[2021-05-22] MEDS ORDERED: Lorazepam 2 MG/ML VIAL ONE ×2 (11:41→12:49)
[2021-05-22 11:44] LABS: Actual Bicarbonate (HCO3a) 25.1 mEq/L (22-28); Base Excess (BEa) 0.1 mEq/L (-2.0 to +3.0); Calcium, Ionized (arterial) 1.23 mmol/L (1.12-1.30); Carboxyhemoglobin (COHb) 0.5 gm% (0.0-3.0); Hemoglobin (Hb) 18.4 g/dL (14.0-18.0); Potassium - ABG Lab 4.85 mmol/L (3.70-5.30); pH, Arterial 7.39 (7.35-7.45)
[2021-05-22 11:47] LABS: Puncture Site RRA
[2021-05-22] MEDS ORDERED: fentaNYL Citrate/PF 2,000 MCG in Sodium Chloride 0.9% 60 ML IV SCH (13:30)
[2021-05-22] MEDS ORDERED: Propofol BOLUS 1,000 MG/100 ML VIAL IV PRN (13:30)
[2021-05-22] MEDS ORDERED: Fentanyl BOLUS 250 ML IVPB PRN (13:30)
[2021-05-22] MEDS ORDERED: DISCONTINUE PREVIOUS NARCOTIC PAIN MEDICATIONS AND BENZODIAZEPINES FS SCH (13:30)
[2021-05-22] MEDS ORDERED: Fentanyl CADD 100 ML ONE (13:31)
[2021-05-22] MEDS: Propofol 1,000 MG/100 ML VIAL IV PRN ×3 (14:07→22:54)
[2021-05-22] MEDS: Lorazepam 2 MG/ML VIAL SLOW IVP PRN (14:26)
[2021-05-22] MEDS: Vecuronium 10 MG VIAL IVP PRN ×2 (14:26→15:23)
[2021-05-22 16:37] LABS: Actual Bicarbonate (HCO3a) 26.4 mEq/L (22-28); Base Excess (BEa) 0.1 mEq/L (-2.0 to +3.0); CO2 Tension 48.7 mmHg (35.0-45.0); Calcium, Ionized (arterial) 1.23 mmol/L (1.12-1.30); Carboxyhemoglobin (COHb) 0.8 gm% (0.0-3.0); Hemoglobin (Hb) 16.1 g/dL (14.0-18.0); O2 Tension (PaO2), arterial 62.2 mmHg (80.0-100.0); Potassium - ABG Lab 4.91 mmol/L (3.70-5.30); pH, Arterial 7.35 (7.35-7.45)
[2021-05-22 16:45] LABS: Puncture Site RBA
[2021-05-22 16:46] LABS: ALV-art Gradient 411.675 mmHg (0-20)
[2021-05-22] MEDS: Cholecalciferol 1,000 UNITS (25 MCG) TAB PO SCH (20:08)
[2021-05-22] MEDS: Melatonin 3 MG TAB PO SCH (20:09)
[2021-05-23 03:32] LABS: #Lymphocytes 0.4 thou/uL (1.20-3.40); #Monocytes 1.3 thou/uL (0.11-0.59); #Neutrophils 14.7 thou/uL (1.40-6.50); %Basophils 0.1 % (0.0-1.0); %Eosinophils 0.1 % (0.0-10.0); %Lymphocytes 2.4 % (21.0-51.0); %Monocytes 8.1 % (0.0-10.0); %Neutrophils 89.4 % (42.0-75.0); Hemoglobin 14.9 g/dL (14.0-18.0); Mean Corpuscular Volume 87.8 fL (78.0-98.0); Mean Platelet Volume 9.2 fL (7.4-10.4); Platelet Count 199 thou/uL (130-400); RBC Distribution Width 14.9 % (11.5-14.5); Red Blood Cell (RBC) Count 5.16 mill/uL (4.70-6.10); White Blood Cell (WBC) Count 16.5 thou/uL (4.8-10.8)
[2021-05-23 03:38] LABS: Anion Gap 15 mmol/L (10-20); BUN (Urea Nitrogen) 23 mg/dL (8.9-20.6); Calc. Creatinine Clearance 166 mL/min (70-130); Calcium 8.6 mg/dL (7.8-10.44); Carbon Dioxide 26 mmol/L (22-29); Chloride 108 mmol/L (98-107); Glucose 115 mg/dL (70-105); Potassium 4.8 mmol/L (3.5-5.1); Sodium 144 mmol/L (136-145)
[2021-05-23] MEDS: MEROPENEM 1 GM/50 ML 1 GM in Premix Bag 1 BAG IVPB SCH ×3 (04:01→20:25)
[2021-05-23] MEDS: Propofol 1,000 MG/100 ML VIAL IV PRN ×4 (04:01→21:51)
[2021-05-23] MEDS ORDERED: Fentanyl CADD 100 ML ONE ×2 (06:44→21:05)
[2021-05-23 08:18] LABS: Actual Bicarbonate (HCO3a) 27.1 mEq/L (22-28); Base Excess (BEa) 2.6 mEq/L (-2.0 to +3.0); CO2 Tension 41.4 mmHg (35.0-45.0); Calcium, Ionized (arterial) 1.15 mmol/L (1.12-1.30); Carboxyhemoglobin (COHb) 1.1 gm% (0.0-3.0); Hemoglobin (Hb) 15.5 g/dL (14.0-18.0); O2 Tension (PaO2), arterial 60.6 mmHg (80.0-100.0); Potassium - ABG Lab 4.68 mmol/L (3.70-5.30); pH, Arterial 7.43 (7.35-7.45)
[2021-05-23] MEDS: Lorazepam 2 MG/ML VIAL SLOW IVP PRN (08:59)
[2021-05-23] MEDS: Ascorbic Acid 500 mg Chewable Tablet PO SCH ×2 (09:00→20:39)
[2021-05-23] MEDS: Docusate 100 MG CAP PO SCH ×2 (09:00→20:40)
[2021-05-23] MEDS: Multivit, Therapeutic 1 TAB PO SCH (09:01)
[2021-05-23] MEDS: Famotidine 20 MG TAB PO SCH ×2 (09:01→20:41)
[2021-05-23] MEDS: Zinc Sulfate 220 MG CAP PO SCH (09:01)
[2021-05-23] MEDS: Enoxaparin Sodium 40 MG/0.4 ML SYRINGE SC SCH ×2 (09:01→20:39)
[2021-05-23] MEDS: Aspirin 325 MG TAB PO SCH (09:12)
[2021-05-23] MEDS: Colchicine 0.6 MG TAB PO SCH ×2 (09:12→20:40)
[2021-05-23] MEDS ORDERED: PROPOFOL 200 MG/20 ML VIAL ONE (09:27)
[2021-05-23] MEDS ORDERED: Succinylcholine 200 MG/10 ml SYRINGE FS ONE (09:27)
[2021-05-23] MEDS ORDERED: Rocuronium Bromide 10 MG/ML (10ML VIAL) ONE (09:27)
[2021-05-23 09:56] LABS: Puncture Site RBA
[2021-05-23] MEDS: METHYLPREDNISOLONE SOD SUCC IVPB SCH (10:07)
[2021-05-23] MEDS: SODIUM CHLORIDE 0.9% IVPB SCH (10:07)
[2021-05-23] MEDS: guaiFENesin ER 600 MG TAB PO SCH ×2 (10:20→20:41)
[2021-05-23] MEDS: Acetaminophen 325 MG TAB PO PRN (11:46)
[2021-05-23] MEDS: Cholecalciferol 1,000 UNITS (25 MCG) TAB PO SCH (20:40)
[2021-05-23] MEDS: Melatonin 3 MG TAB PO SCH (20:40)
[2021-05-24] MEDS: Propofol 1,000 MG/100 ML VIAL IV PRN ×4 (02:04→20:07)
[2021-05-24 04:28] LABS: #Lymphocytes 0.4 thou/uL (1.20-3.40); #Monocytes 1.3 thou/uL (0.11-0.59); #Neutrophils 13.3 thou/uL (1.40-6.50); %Eosinophils 0.2 % (0.0-10.0); %Lymphocytes 2.7 % (21.0-51.0); %Monocytes 8.9 % (0.0-10.0); %Neutrophils 88.2 % (42.0-75.0); Hemoglobin 14.2 g/dL (14.0-18.0); Mean Corpuscular HGB CONC 32.5 g/dL (32.0-36.0); Mean Corpuscular Volume 89.3 fL (78.0-98.0); Platelet Count 151 thou/uL (130-400); RBC Distribution Width 15.1 % (11.5-14.5); Red Blood Cell (RBC) Count 4.91 mill/uL (4.70-6.10)
[2021-05-24] MEDS: MEROPENEM 1 GM/50 ML 1 GM in Premix Bag 1 BAG IVPB SCH ×3 (04:34→20:08)
[2021-05-24 04:50] LABS: Anion Gap 16 mmol/L (10-20); BUN (Urea Nitrogen) 22 mg/dL (8.9-20.6); Calc. Creatinine Clearance 192 mL/min (70-130); Calcium 8.7 mg/dL (7.8-10.44); Carbon Dioxide 25 mmol/L (22-29); Chloride 110 mmol/L (98-107); Glucose 140 mg/dL (70-105); Potassium 3.9 mmol/L (3.5-5.1); Sodium 147 mmol/L (136-145)
[2021-05-24 06:55] LABS: Actual Bicarbonate (HCO3a) 27.8 mEq/L (22-28); Base Excess (BEa) 3.5 mEq/L (-2.0 to +3.0); Calcium, Ionized (arterial) 1.19 mmol/L (1.12-1.30); Hemoglobin (Hb) 15.1 g/dL (14.0-18.0); Potassium - ABG Lab 3.85 mmol/L (3.70-5.30); pH, Arterial 7.45 (7.35-7.45)
[2021-05-24 06:57] LABS: O2 Tension (PaO2), arterial 54.1 mmHg (80.0-100.0); Puncture Site LRA
[2021-05-24] MEDS: Zinc Sulfate 220 MG CAP PO SCH (07:53)
[2021-05-24] MEDS: Multivit, Therapeutic 1 TAB PO SCH (07:53)
[2021-05-24] MEDS: Famotidine 20 MG TAB PO SCH ×2 (07:53→20:35)
[2021-05-24] MEDS: Ascorbic Acid 500 mg Chewable Tablet PO SCH ×2 (07:53→20:33)
[2021-05-24] MEDS: guaiFENesin ER 600 MG TAB PO SCH (07:53)
[2021-05-24] MEDS: Docusate 100 MG CAP PO SCH ×2 (07:53→20:35)
[2021-05-24] MEDS: Enoxaparin Sodium 40 MG/0.4 ML SYRINGE SC SCH ×2 (07:54→21:16)
[2021-05-24] MEDS: Aspirin 325 MG TAB PO SCH (07:56)
[2021-05-24] MEDS: Colchicine 0.6 MG TAB PO SCH ×2 (07:56→21:16)
[2021-05-24] MEDS: SODIUM CHLORIDE 0.9% IVPB SCH (08:35)
[2021-05-24] MEDS: METHYLPREDNISOLONE SOD SUCC IVPB SCH (08:35)
[2021-05-24] MEDS ORDERED: Fentanyl CADD 100 ML ONE (12:47)
[2021-05-24] MEDS ORDERED: EPINEPHrine 1 MG/10 ML Abboject SYRINGE ONE (16:05)
[2021-05-24] MEDS: GUAIFENESIN SF SOLN 200 MG/10 ML UDCUP PER TUBE SCH ×2 (19:40→21:16)
[2021-05-24] MEDS: Multivits W-Minerals Liquid 15 ML LIQ PER TUBE SCH (19:40)
[2021-05-24] MEDS: Melatonin 3 MG TAB PO SCH (20:30)
[2021-05-24] MEDS: Cholecalciferol 1,000 UNITS (25 MCG) TAB PO SCH (20:34)
[2021-05-25] MEDS: Propofol 1,000 MG/100 ML VIAL IV PRN ×6 (01:26→22:00)
[2021-05-25] MEDS: Lorazepam 2 MG/ML VIAL SLOW IVP PRN (02:50)
[2021-05-25] MEDS: MEROPENEM 1 GM/50 ML 1 GM in Premix Bag 1 BAG IVPB SCH ×3 (04:32→22:45)
[2021-05-25 04:40] LABS: #Lymphocytes 0.4 thou/uL (1.20-3.40); #Monocytes 1.1 thou/uL (0.11-0.59); #Neutrophils 13.3 thou/uL (1.40-6.50); %Basophils 0.1 % (0.0-1.0); %Eosinophils 0.2 % (0.0-10.0); %Lymphocytes 2.5 % (21.0-51.0); %Monocytes 7.1 % (0.0-10.0); %Neutrophils 90.1 % (42.0-75.0); Hemoglobin 14.3 g/dL (14.0-18.0); Mean Corpuscular Hemoglobin 29.5 pg (27.0-31.0); Mean Corpuscular Volume 89.4 fL (78.0-98.0); Mean Platelet Volume 9.2 fL (7.4-10.4); Platelet Count 140 thou/uL (130-400); RBC Distribution Width 14.9 % (11.5-14.5); Red Blood Cell (RBC) Count 4.85 mill/uL (4.70-6.10); White Blood Cell (WBC) Count 14.8 thou/uL (4.8-10.8)
[2021-05-25 05:01] LABS: Anion Gap 11 mmol/L (10-20); BUN (Urea Nitrogen) 18 mg/dL (8.9-20.6); Calc. Creatinine Clearance 203 mL/min (70-130); Calcium 8.8 mg/dL (7.8-10.44); Carbon Dioxide 29 mmol/L (22-29); Chloride 111 mmol/L (98-107); Glucose 119 mg/dL (70-105); Potassium 4.2 mmol/L (3.5-5.1); Sodium 147 mmol/L (136-145)
[2021-05-25] MEDS ORDERED: Fentanyl CADD 100 ML ONE ×2 (05:09→21:35)
[2021-05-25 06:49] LABS: Actual Bicarbonate (HCO3a) 27.7 mEq/L (22-28); Base Excess (BEa) 3.5 mEq/L (-2.0 to +3.0); CO2 Tension 40.4 mmHg (35.0-45.0); Carboxyhemoglobin (COHb) 0.7 gm% (0.0-3.0); Hemoglobin (Hb) 15.1 g/dL (14.0-18.0); O2 Tension (PaO2), arterial 60.4 mmHg (80.0-100.0); Potassium - ABG Lab 4.21 mmol/L (3.70-5.30); pH, Arterial 7.45 (7.35-7.45)
[2021-05-25 06:59] LABS: Puncture Site LBA
[2021-05-25] MEDS: Enoxaparin Sodium 40 MG/0.4 ML SYRINGE SC SCH ×2 (09:34→22:46)
[2021-05-25] MEDS: GUAIFENESIN SF SOLN 200 MG/10 ML UDCUP PER TUBE SCH ×2 (09:34→22:47)
[2021-05-25] MEDS: Ascorbic Acid 500 mg Chewable Tablet PO SCH ×2 (09:35→22:48)
[2021-05-25] MEDS: METHYLPREDNISOLONE SOD SUCC IVPB SCH (09:35)
[2021-05-25] MEDS: Famotidine 20 MG TAB PO SCH ×2 (09:35→22:48)
[2021-05-25] MEDS: Docusate 100 MG CAP PO SCH ×2 (09:35→22:49)
[2021-05-25] MEDS: Zinc Sulfate 220 MG CAP PO SCH (09:35)
[2021-05-25] MEDS: Aspirin 325 MG TAB PO SCH (09:35)
[2021-05-25] MEDS: Colchicine 0.6 MG TAB PO SCH ×2 (09:35→22:49)
[2021-05-25] MEDS: SODIUM CHLORIDE 0.9% IVPB SCH (09:35)
[2021-05-25] MEDS: Multivits W-Minerals Liquid 15 ML LIQ PER TUBE SCH (09:36)
[2021-05-25] MEDS: Cholecalciferol 1,000 UNITS (25 MCG) TAB PO SCH (22:47)
[2021-05-25] MEDS: Melatonin 3 MG TAB PO SCH (22:51)
[2021-05-26] MEDS: Propofol 1,000 MG/100 ML VIAL IV PRN ×2 (02:55→06:27)
[2021-05-26] MEDS: MEROPENEM 1 GM/50 ML 1 GM in Premix Bag 1 BAG IVPB SCH ×3 (03:46→20:56)
[2021-05-26 04:56] LABS: #Eosinphils 0.1 thou/uL (0.0-0.7); #Lymphocytes 0.5 thou/uL (1.20-3.40); #Monocytes 0.8 thou/uL (0.11-0.59); #Neutrophils 8.9 thou/uL (1.40-6.50); %Basophils 0.1 % (0.0-1.0); %Eosinophils 0.7 % (0.0-10.0); %Lymphocytes 5.1 % (21.0-51.0); %Monocytes 7.6 % (0.0-10.0); %Neutrophils 86.5 % (42.0-75.0); Mean Corpuscular HGB CONC 32.9 g/dL (32.0-36.0); Mean Corpuscular Hemoglobin 29.5 pg (27.0-31.0); Mean Corpuscular Volume 89.8 fL (78.0-98.0); Mean Platelet Volume 10.2 fL (7.4-10.4); Platelet Count 129 thou/uL (130-400); RBC Distribution Width 14.9 % (11.5-14.5); Red Blood Cell (RBC) Count 4.76 mill/uL (4.70-6.10); White Blood Cell (WBC) Count 10.3 thou/uL (4.8-10.8)
[2021-05-26 05:16] LABS: Anion Gap 13 mmol/L (10-20); BUN (Urea Nitrogen) 17 mg/dL (8.9-20.6); Calc. Creatinine Clearance 224 mL/min (70-130); Calcium 8.8 mg/dL (7.8-10.44); Carbon Dioxide 27 mmol/L (22-29); Chloride 110 mmol/L (98-107); Glucose 116 mg/dL (70-105); Potassium 4.3 mmol/L (3.5-5.1); Sodium 146 mmol/L (136-145)
[2021-05-26 07:16] LABS: Base Excess (BEa) 2.8 mEq/L (-2.0 to +3.0); CO2 Tension 44.8 mmHg (35.0-45.0); Calcium, Ionized (arterial) 1.21 mmol/L (1.12-1.30); Carboxyhemoglobin (COHb) 1.2 gm% (0.0-3.0); Hemoglobin (Hb) 15.6 g/dL (14.0-18.0); Potassium - ABG Lab 4.18 mmol/L (3.70-5.30); pH, Arterial 7.41 (7.35-7.45)
[2021-05-26 07:18] LABS: O2 Tension (PaO2), arterial 57.2 mmHg (80.0-100.0); Puncture Site LRA
[2021-05-26] MEDS: Colchicine 0.6 MG TAB PO SCH ×2 (08:38→20:57)
[2021-05-26] MEDS: GUAIFENESIN SF SOLN 200 MG/10 ML UDCUP PER TUBE SCH ×2 (08:38→20:57)
[2021-05-26] MEDS: Enoxaparin Sodium 40 MG/0.4 ML SYRINGE SC SCH ×2 (08:38→20:58)
[2021-05-26] MEDS: Zinc Sulfate 220 MG CAP PO SCH (08:39)
[2021-05-26] MEDS: Famotidine 20 MG TAB PO SCH ×2 (08:39→20:57)
[2021-05-26] MEDS: Docusate 100 MG CAP PO SCH ×2 (08:39→20:58)
[2021-05-26] MEDS: Ascorbic Acid 500 mg Chewable Tablet PO SCH ×2 (08:39→20:58)
[2021-05-26] MEDS: Aspirin 325 MG TAB PO SCH (08:39)
[2021-05-26] MEDS: METHYLPREDNISOLONE SOD SUCC IVPB SCH (08:40)
[2021-05-26] MEDS: SODIUM CHLORIDE 0.9% IVPB SCH (08:40)
[2021-05-26] MEDS: Multivits W-Minerals Liquid 15 ML LIQ PER TUBE SCH (08:40)
[2021-05-26] MEDS ORDERED: Fentanyl CADD 100 ML ONE (12:46)
[2021-05-26] MEDS: Lorazepam 2 MG/ML VIAL SLOW IVP PRN (17:12)
[2021-05-26] MEDS: Cholecalciferol 1,000 UNITS (25 MCG) TAB PO SCH (20:58)
[2021-05-26] MEDS: Melatonin 3 MG TAB PO SCH (20:58)
[2021-05-27] MEDS: MEROPENEM 1 GM/50 ML 1 GM in Premix Bag 1 BAG IVPB SCH (03:34)
[2021-05-27] MEDS ORDERED: Fentanyl CADD 0 ML ONE (04:34)
[2021-05-27 04:37] LABS: #Basophils 0.1 thou/uL (0.0-0.2); #Eosinphils 0.1 thou/uL (0.0-0.7); #Lymphocytes 0.6 thou/uL (1.20-3.40); #Monocytes 1.1 thou/uL (0.11-0.59); #Neutrophils 10.1 thou/uL (1.40-6.50); %Basophils 0.6 % (0.0-1.0); %Eosinophils 0.6 % (0.0-10.0); %Monocytes 9.1 % (0.0-10.0); %Neutrophils 84.8 % (42.0-75.0); Hemoglobin 14.9 g/dL (14.0-18.0); Mean Corpuscular HGB CONC 32.9 g/dL (32.0-36.0); Mean Corpuscular Hemoglobin 29.2 pg (27.0-31.0); Mean Corpuscular Volume 88.7 fL (78.0-98.0); Platelet Count 137 thou/uL (130-400); RBC Distribution Width 14.8 % (11.5-14.5); Red Blood Cell (RBC) Count 5.12 mill/uL (4.70-6.10); White Blood Cell (WBC) Count 11.9 thou/uL (4.8-10.8)
[2021-05-27 04:53] LABS: Anion Gap 13 mmol/L (10-20); BUN (Urea Nitrogen) 17 mg/dL (8.9-20.6); Calc. Creatinine Clearance 226 mL/min (70-130); Carbon Dioxide 27 mmol/L (22-29); Chloride 106 mmol/L (98-107); Glucose 110 mg/dL (70-105); Potassium 4.3 mmol/L (3.5-5.1); Sodium 142 mmol/L (136-145)
[2021-05-27] MEDS: Lorazepam 2 MG/ML VIAL SLOW IVP PRN ×2 (07:29→19:40)
[2021-05-27] MEDS: METHYLPREDNISOLONE SOD SUCC IVPB SCH (07:36)
[2021-05-27] MEDS: SODIUM CHLORIDE 0.9% IVPB SCH (07:36)
[2021-05-27] MEDS ORDERED: Furosemide 20 MG/2 ML VIAL SLOW IVP SCH (08:14)
[2021-05-27 08:15] LABS: Base Excess (BEa) 2.5 mEq/L (-2.0 to +3.0); CO2 Tension 33.1 mmHg (35.0-45.0); Calcium, Ionized (arterial) 1.19 mmol/L (1.12-1.30); Hemoglobin (Hb) 16.4 g/dL (14.0-18.0); Potassium - ABG Lab 4.47 mmol/L (3.70-5.30)
[2021-05-27 08:44] LABS: O2 Tension (PaO2), arterial 46.9 mmHg (80.0-100.0)
[2021-05-27 08:45] LABS: ALV-art Gradient 268.225 mmHg (0-20); Puncture Site LRA
[2021-05-27] MEDS: Multivits W-Minerals Liquid 15 ML LIQ PER TUBE SCH (09:05)
[2021-05-27] MEDS: GUAIFENESIN SF SOLN 200 MG/10 ML UDCUP PER TUBE SCH ×2 (09:05→20:22)
[2021-05-27] MEDS: Famotidine 20 MG TAB PO SCH ×2 (09:06→20:23)
[2021-05-27] MEDS: Aspirin 325 MG TAB PO SCH (09:06)
[2021-05-27] MEDS: Colchicine 0.6 MG TAB PO SCH ×2 (09:06→20:24)
[2021-05-27] MEDS: Ascorbic Acid 500 mg Chewable Tablet PO SCH ×2 (09:06→20:24)
[2021-05-27] MEDS: Enoxaparin Sodium 40 MG/0.4 ML SYRINGE SC SCH ×2 (09:06→20:22)
[2021-05-27] MEDS: Zinc Sulfate 220 MG CAP PO SCH (09:06)
[2021-05-27] MEDS: Docusate Sodium 100 MG/10 ML UDCUP PO SCH ×2 (10:40→20:24)
[2021-05-27] MEDS: Cholecalciferol 1,000 UNITS (25 MCG) TAB PO SCH (20:23)
[2021-05-27] MEDS: Melatonin 3 MG TAB PO SCH (20:23)
[2021-05-28] MEDS: Lorazepam 2 MG/ML VIAL SLOW IVP PRN ×4 (00:25→23:50)
[2021-05-28 04:51] LABS: #Basophils 0.1 thou/uL (0.0-0.2); #Lymphocytes 0.7 thou/uL (1.20-3.40); #Monocytes 1.1 thou/uL (0.11-0.59); #Neutrophils 10.3 thou/uL (1.40-6.50); %Basophils 0.4 % (0.0-1.0); %Eosinophils 0.4 % (0.0-10.0); %Monocytes 9.2 % (0.0-10.0); %Neutrophils 83.9 % (42.0-75.0); Hemoglobin 15.8 g/dL (14.0-18.0); Mean Corpuscular HGB CONC 33.5 g/dL (32.0-36.0); Mean Corpuscular Hemoglobin 29.5 pg (27.0-31.0); Mean Corpuscular Volume 88.1 fL (78.0-98.0); Mean Platelet Volume 10.4 fL (7.4-10.4); Platelet Count 127 thou/uL (130-400); RBC Distribution Width 14.8 % (11.5-14.5); Red Blood Cell (RBC) Count 5.35 mill/uL (4.70-6.10); White Blood Cell (WBC) Count 12.2 thou/uL (4.8-10.8)
[2021-05-28 05:11] LABS: Anion Gap 16 mmol/L (10-20); BUN (Urea Nitrogen) 21 mg/dL (8.9-20.6); Calc. Creatinine Clearance 217 mL/min (70-130); Calcium 9.2 mg/dL (7.8-10.44); Carbon Dioxide 24 mmol/L (22-29); Chloride 109 mmol/L (98-107); Glucose 130 mg/dL (70-105); Potassium 4.4 mmol/L (3.5-5.1); Sodium 145 mmol/L (136-145)
[2021-05-28] MEDS: METHYLPREDNISOLONE SOD SUCC IVPB SCH (05:28)
[2021-05-28] MEDS: SODIUM CHLORIDE 0.9% IVPB SCH (05:28)
[2021-05-28 08:09] LABS: Actual Bicarbonate (HCO3a) 21.7 mEq/L (22-28); CO2 Tension 31.3 mmHg (35.0-45.0); Calcium, Ionized (arterial) 1.19 mmol/L (1.12-1.30); Carboxyhemoglobin (COHb) 1.3 gm% (0.0-3.0); Hemoglobin (Hb) 16.9 g/dL (14.0-18.0); Potassium - ABG Lab 4.45 mmol/L (3.70-5.30); pH, Arterial 7.46 (7.35-7.45)
[2021-05-28 08:10] LABS: O2 Tension (PaO2), arterial 59.8 mmHg (80.0-100.0); Puncture Site LRA
[2021-05-28 08:11] LABS: ALV-art Gradient 257.575 mmHg (0-20)
[2021-05-28] MEDS: Ascorbic Acid 500 mg Chewable Tablet PO SCH ×2 (09:17→20:26)
[2021-05-28] MEDS: Docusate Sodium 100 MG/10 ML UDCUP PO SCH ×2 (09:17→20:25)
[2021-05-28] MEDS: Enoxaparin Sodium 40 MG/0.4 ML SYRINGE SC SCH ×2 (09:17→20:25)
[2021-05-28] MEDS: GUAIFENESIN SF SOLN 200 MG/10 ML UDCUP PER TUBE SCH ×2 (09:17→20:25)
[2021-05-28] MEDS: Aspirin 325 MG TAB PO SCH (09:17)
[2021-05-28] MEDS: Multivits W-Minerals Liquid 15 ML LIQ PER TUBE SCH (09:18)
[2021-05-28] MEDS: Zinc Sulfate 220 MG CAP PO SCH (09:18)
[2021-05-28] MEDS: Colchicine 0.6 MG TAB PO SCH ×2 (09:18→20:26)
[2021-05-28] MEDS: Famotidine 20 MG TAB PO SCH ×2 (09:18→20:26)
[2021-05-28] MEDS: Melatonin 3 MG TAB PO SCH (20:25)
[2021-05-28] MEDS: Cholecalciferol 1,000 UNITS (25 MCG) TAB PO SCH (20:26)
[2021-05-29] MEDS: Morphine 2 MG/ML VIAL SLOW IVP PRN ×3 (02:21→23:06)
[2021-05-29] MEDS: Lorazepam 2 MG/ML VIAL SLOW IVP PRN ×2 (02:59→20:40)
[2021-05-29] MEDS: METHYLPREDNISOLONE SOD SUCC IVPB SCH (04:42)
[2021-05-29] MEDS: SODIUM CHLORIDE 0.9% IVPB SCH (04:42)
[2021-05-29 05:13] LABS: #Eosinphils 0.1 thou/uL (0.0-0.7); #Lymphocytes 0.4 thou/uL (1.20-3.40); #Monocytes 1.2 thou/uL (0.11-0.59); #Neutrophils 11.2 thou/uL (1.40-6.50); %Basophils 0.2 % (0.0-1.0); %Eosinophils 0.5 % (0.0-10.0); %Lymphocytes 3.4 % (21.0-51.0); %Monocytes 9.4 % (0.0-10.0); %Neutrophils 86.4 % (42.0-75.0); Hemoglobin 15.3 g/dL (14.0-18.0); Mean Corpuscular HGB CONC 33.5 g/dL (32.0-36.0); Mean Corpuscular Hemoglobin 29.8 pg (27.0-31.0); Mean Platelet Volume 10.1 fL (7.4-10.4); Platelet Count 130 thou/uL (130-400); RBC Distribution Width 15.2 % (11.5-14.5); Red Blood Cell (RBC) Count 5.13 mill/uL (4.70-6.10)
[2021-05-29 05:32] LABS: Anion Gap 13 mmol/L (10-20); BUN (Urea Nitrogen) 22 mg/dL (8.9-20.6); Calc. Creatinine Clearance 223 mL/min (70-130); Calcium 9.1 mg/dL (7.8-10.44); Carbon Dioxide 25 mmol/L (22-29); Chloride 112 mmol/L (98-107); Glucose 113 mg/dL (70-105); Potassium 4.3 mmol/L (3.5-5.1); Sodium 146 mmol/L (136-145)
[2021-05-29 07:17] LABS: Actual Bicarbonate (HCO3a) 24.1 mEq/L (22-28); Base Excess (BEa) 0.9 mEq/L (-2.0 to +3.0); CO2 Tension 34.6 mmHg (35.0-45.0); Calcium, Ionized (arterial) 1.23 mmol/L (1.12-1.30); Carboxyhemoglobin (COHb) 0.7 gm% (0.0-3.0); Hemoglobin (Hb) 16.2 g/dL (14.0-18.0); O2 Tension (PaO2), arterial 66.6 mmHg (80.0-100.0); Potassium - ABG Lab 4.42 mmol/L (3.70-5.30); pH, Arterial 7.46 (7.35-7.45)
[2021-05-29 07:46] LABS: Puncture Site RRA
[2021-05-29] MEDS: Aspirin 325 MG TAB PO SCH (08:36)
[2021-05-29] MEDS: Ascorbic Acid 500 mg Chewable Tablet PO SCH ×2 (08:36→20:38)
[2021-05-29] MEDS: Colchicine 0.6 MG TAB PO SCH ×2 (08:36→20:44)
[2021-05-29] MEDS: Zinc Sulfate 220 MG CAP PO SCH (08:36)
[2021-05-29] MEDS: Famotidine 20 MG TAB PO SCH ×2 (08:37→20:39)
[2021-05-29] MEDS: Multivits W-Minerals Liquid 15 ML LIQ PER TUBE SCH (08:37)
[2021-05-29] MEDS: Enoxaparin Sodium 40 MG/0.4 ML SYRINGE SC SCH ×2 (08:37→20:39)
[2021-05-29] MEDS: GUAIFENESIN SF SOLN 200 MG/10 ML UDCUP PER TUBE SCH ×2 (08:37→20:38)
[2021-05-29] MEDS: Docusate Sodium 100 MG/10 ML UDCUP PO SCH ×2 (08:37→20:38)
[2021-05-29] MEDS: Ivermectin 3 MG TAB PO SCH (10:02)
[2021-05-29] MEDS: Cholecalciferol 1,000 UNITS (25 MCG) TAB PO SCH (20:39)
[2021-05-29] MEDS: Melatonin 3 MG TAB PO SCH (20:39)
[2021-05-30] MEDS: METHYLPREDNISOLONE SOD SUCC IVPB SCH ×2 (03:20→23:45)
[2021-05-30] MEDS: SODIUM CHLORIDE 0.9% IVPB SCH ×2 (03:20→23:45)
[2021-05-30] MEDS: Morphine 2 MG/ML VIAL SLOW IVP PRN (03:21)
[2021-05-30 03:44] LABS: #Lymphocytes 0.5 thou/uL (1.20-3.40); #Neutrophils 9.5 thou/uL (1.40-6.50); %Basophils 0.3 % (0.0-1.0); %Eosinophils 0.3 % (0.0-10.0); %Lymphocytes 4.7 % (21.0-51.0); %Monocytes 8.6 % (0.0-10.0); %Neutrophils 86.1 % (42.0-75.0); Hemoglobin 14.6 g/dL (14.0-18.0); Mean Corpuscular HGB CONC 31.8 g/dL (32.0-36.0); Mean Corpuscular Hemoglobin 28.5 pg (27.0-31.0); Mean Corpuscular Volume 89.7 fL (78.0-98.0); Mean Platelet Volume 10.4 fL (7.4-10.4); Platelet Count 132 thou/uL (130-400); RBC Distribution Width 15.3 % (11.5-14.5)
[2021-05-30 03:57] LABS: Anion Gap 12 mmol/L (10-20); BUN (Urea Nitrogen) 24 mg/dL (8.9-20.6); Calc. Creatinine Clearance 226 mL/min (70-130); Calcium 9.4 mg/dL (7.8-10.44); Carbon Dioxide 25 mmol/L (22-29); Chloride 111 mmol/L (98-107); Glucose 113 mg/dL (70-105); Potassium 4.4 mmol/L (3.5-5.1); Sodium 144 mmol/L (136-145)
[2021-05-30 07:26] LABS: Actual Bicarbonate (HCO3a) 22.1 mEq/L (22-28); Base Excess (BEa) -0.7 mEq/L (-2.0 to +3.0); CO2 Tension 31.5 mmHg (35.0-45.0); Calcium, Ionized (arterial) 1.24 mmol/L (1.12-1.30); pH, Arterial 7.46 (7.35-7.45)
[2021-05-30 07:33] LABS: ALV-art Gradient 228.975 mmHg (0-20); O2 Tension (PaO2), arterial 52.5 mmHg (80.0-100.0); Peep/CPAP 6.5 cmH2O; Puncture Site RRA
[2021-05-30] MEDS: Lorazepam 2 MG/ML VIAL SLOW IVP PRN (07:50)
[2021-05-30] MEDS: Ascorbic Acid 500 mg Chewable Tablet PO SCH ×2 (09:22→21:09)
[2021-05-30] MEDS: Colchicine 0.6 MG TAB PO SCH ×2 (09:23→21:08)
[2021-05-30] MEDS: Docusate Sodium 100 MG/10 ML UDCUP PO SCH ×2 (09:23→21:08)
[2021-05-30] MEDS: Aspirin 325 MG TAB PO SCH (09:23)
[2021-05-30] MEDS: GUAIFENESIN SF SOLN 200 MG/10 ML UDCUP PER TUBE SCH ×2 (09:24→21:08)
[2021-05-30] MEDS: Multivits W-Minerals Liquid 15 ML LIQ PER TUBE SCH (09:24)
[2021-05-30] MEDS: Famotidine 20 MG TAB PO SCH ×2 (09:24→21:09)
[2021-05-30] MEDS: Zinc Sulfate 220 MG CAP PO SCH (09:25)
[2021-05-30] MEDS: Enoxaparin Sodium 40 MG/0.4 ML SYRINGE SC SCH ×2 (09:59→21:08)
[2021-05-30] MEDS: Acetaminophen 325 MG TAB PO PRN ×2 (18:59→22:51)
[2021-05-30] MEDS: Cholecalciferol 1,000 UNITS (25 MCG) TAB PO SCH (21:09)
[2021-05-30] MEDS: Melatonin 3 MG TAB PO SCH (21:09)
[2021-05-30] MEDS: Cyclobenzaprine 10 MG TAB PO PRN (23:43)
[2021-05-31] MEDS: Acetaminophen 325 MG TAB PO PRN ×3 (04:31→14:51)
[2021-05-31 05:31] LABS: #Lymphocytes 0.8 thou/uL (1.20-3.40); #Monocytes 1.1 thou/uL (0.11-0.59); #Neutrophils 10.9 thou/uL (1.40-6.50); %Basophils 0.2 % (0.0-1.0); %Eosinophils 0.3 % (0.0-10.0); %Lymphocytes 5.9 % (21.0-51.0); %Monocytes 8.4 % (0.0-10.0); %Neutrophils 85.2 % (42.0-75.0); Mean Corpuscular HGB CONC 32.7 g/dL (32.0-36.0); Mean Corpuscular Volume 88.7 fL (78.0-98.0); Mean Platelet Volume 10.4 fL (7.4-10.4); Platelet Count 160 thou/uL (130-400); RBC Distribution Width 15.4 % (11.5-14.5); Red Blood Cell (RBC) Count 5.18 mill/uL (4.70-6.10); White Blood Cell (WBC) Count 12.8 thou/uL (4.8-10.8)
[2021-05-31 05:48] LABS: Anion Gap 10 mmol/L (10-20); BUN (Urea Nitrogen) 17 mg/dL (8.9-20.6); Calc. Creatinine Clearance 212 mL/min (70-130); Calcium 9.6 mg/dL (7.8-10.44); Carbon Dioxide 29 mmol/L (22-29); Chloride 104 mmol/L (98-107); Glucose 92 mg/dL (70-105); Potassium 4.2 mmol/L (3.5-5.1); Sodium 139 mmol/L (136-145)
[2021-05-31] MEDS: Lorazepam 2 MG/ML VIAL SLOW IVP PRN ×3 (07:29→23:18)
[2021-05-31] MEDS: Aspirin 325 MG TAB PO SCH (08:26)
[2021-05-31] MEDS: Ascorbic Acid 500 mg Chewable Tablet PO SCH ×2 (08:26→20:32)
[2021-05-31] MEDS: Colchicine 0.6 MG TAB PO SCH ×2 (08:26→20:33)
[2021-05-31] MEDS: Dexamethasone 4 mg/ml Vial SLOW IVP SCH ×2 (08:26→20:33)
[2021-05-31] MEDS: Famotidine 20 MG TAB PO SCH ×2 (08:27→20:33)
[2021-05-31] MEDS: Docusate Sodium 100 MG/10 ML UDCUP PO SCH (08:27)
[2021-05-31] MEDS: GUAIFENESIN SF SOLN 200 MG/10 ML UDCUP PER TUBE SCH (08:27)
[2021-05-31] MEDS: Enoxaparin Sodium 40 MG/0.4 ML SYRINGE SC SCH ×2 (08:27→20:33)
[2021-05-31] MEDS: Zinc Sulfate 220 MG CAP PO SCH (08:28)
[2021-05-31] MEDS: Docusate 100 MG CAP PO SCH ×2 (14:27→20:33)
[2021-05-31] MEDS: guaiFENesin 200 MG TAB PO SCH ×2 (14:28→20:32)
[2021-05-31] MEDS: Multivitamin W/ Minerals 1 TAB PO SCH (14:32)
[2021-05-31] MEDS: Morphine 2 MG/ML VIAL SLOW IVP PRN ×2 (14:50→21:35)
[2021-05-31] MEDS: Cholecalciferol 1,000 UNITS (25 MCG) TAB PO SCH (20:33)
[2021-05-31] MEDS: Melatonin 3 MG TAB PO SCH (20:33)
[2021-06-01] MEDS: Morphine 2 MG/ML VIAL SLOW IVP PRN (00:59)
[2021-06-01] MEDS: Lorazepam 2 MG/ML VIAL SLOW IVP PRN (03:21)
[2021-06-01 05:14] LABS: #Basophils 0.1 thou/uL (0.0-0.2); #Lymphocytes 0.7 thou/uL (1.20-3.40); #Monocytes 1.1 thou/uL (0.11-0.59); #Neutrophils 8.5 thou/uL (1.40-6.50); %Basophils 0.6 % (0.0-1.0); %Eosinophils 0.5 % (0.0-10.0); %Monocytes 10.6 % (0.0-10.0); %Neutrophils 81.4 % (42.0-75.0); Hemoglobin 15.2 g/dL (14.0-18.0); Mean Corpuscular HGB CONC 33.4 g/dL (32.0-36.0); Mean Corpuscular Hemoglobin 29.6 pg (27.0-31.0); Mean Corpuscular Volume 88.5 fL (78.0-98.0); Mean Platelet Volume 10.2 fL (7.4-10.4); Platelet Count 159 thou/uL (130-400); RBC Distribution Width 15.2 % (11.5-14.5); Red Blood Cell (RBC) Count 5.14 mill/uL (4.70-6.10); White Blood Cell (WBC) Count 10.5 thou/uL (4.8-10.8)
[2021-06-01 05:38] LABS: Anion Gap 13 mmol/L (10-20); BUN (Urea Nitrogen) 16 mg/dL (8.9-20.6); Calc. Creatinine Clearance 230 mL/min (70-130); Carbon Dioxide 25 mmol/L (22-29); Chloride 102 mmol/L (98-107); Glucose 106 mg/dL (70-105); Potassium 4.1 mmol/L (3.5-5.1); Sodium 136 mmol/L (136-145)
[2021-06-01] MEDS: Ascorbic Acid 500 mg Chewable Tablet PO SCH ×2 (07:59→20:39)
[2021-06-01] MEDS: Colchicine 0.6 MG TAB PO SCH ×2 (07:59→20:39)
[2021-06-01] MEDS: Aspirin 325 MG TAB PO SCH (07:59)
[2021-06-01] MEDS: Docusate 100 MG CAP PO SCH ×2 (08:00→20:40)
[2021-06-01] MEDS: Enoxaparin Sodium 40 MG/0.4 ML SYRINGE SC SCH ×2 (08:01→20:39)
[2021-06-01] MEDS: Famotidine 20 MG TAB PO SCH ×2 (08:01→20:38)
[2021-06-01] MEDS: Multivitamin W/ Minerals 1 TAB PO SCH (08:02)
[2021-06-01] MEDS: guaiFENesin 200 MG TAB PO SCH ×2 (08:02→20:38)
[2021-06-01] MEDS: Acetaminophen 325 MG TAB PO PRN ×4 (08:03→22:26)
[2021-06-01] MEDS: Zinc Sulfate 220 MG CAP PO SCH (08:04)
[2021-06-01] MEDS: Dexamethasone 4 mg/ml Vial SLOW IVP SCH ×2 (08:15→20:38)
[2021-06-01] MEDS: Melatonin 3 MG TAB PO SCH (20:38)
[2021-06-01] MEDS: Cholecalciferol 1,000 UNITS (25 MCG) TAB PO SCH (20:40)
[2021-06-01] MEDS: clonazePAM 0.5 MG TAB PO PRN (21:29)
[2021-06-02] MEDS: Acetaminophen 325 MG TAB PO PRN ×4 (03:08→21:53)
[2021-06-02 04:30] LABS: #Eosinphils 0.1 thou/uL (0.0-0.7); #Lymphocytes 0.9 thou/uL (1.20-3.40); #Monocytes 1.1 thou/uL (0.11-0.59); #Neutrophils 7.9 thou/uL (1.40-6.50); %Basophils 0.2 % (0.0-1.0); %Eosinophils 1.1 % (0.0-10.0); %Lymphocytes 8.9 % (21.0-51.0); %Neutrophils 78.9 % (42.0-75.0); Hemoglobin 14.7 g/dL (14.0-18.0); Mean Corpuscular HGB CONC 33.7 g/dL (32.0-36.0); Mean Corpuscular Hemoglobin 30.1 pg (27.0-31.0); Mean Corpuscular Volume 89.2 fL (78.0-98.0); Mean Platelet Volume 9.7 fL (7.4-10.4); Platelet Count 157 thou/uL (130-400); RBC Distribution Width 15.1 % (11.5-14.5)
[2021-06-02] MEDS: Cyclobenzaprine 10 MG TAB PO PRN ×2 (04:40→18:26)
[2021-06-02 04:48] LABS: Anion Gap 12 mmol/L (10-20); BUN (Urea Nitrogen) 13 mg/dL (8.9-20.6); Calc. Creatinine Clearance 217 mL/min (70-130); Calcium 8.6 mg/dL (7.8-10.44); Carbon Dioxide 26 mmol/L (22-29); Chloride 102 mmol/L (98-107); Glucose 87 mg/dL (70-105); Potassium 3.9 mmol/L (3.5-5.1); Sodium 136 mmol/L (136-145)
[2021-06-02] MEDS: Docusate 100 MG CAP PO SCH ×2 (08:42→20:32)
[2021-06-02] MEDS: Colchicine 0.6 MG TAB PO SCH ×2 (08:42→20:32)
[2021-06-02] MEDS: Ascorbic Acid 500 mg Chewable Tablet PO SCH ×2 (09:00→20:33)
[2021-06-02] MEDS: Zinc Sulfate 220 MG CAP PO SCH (09:00)
[2021-06-02] MEDS: Multivitamin W/ Minerals 1 TAB PO SCH (09:00)
[2021-06-02] MEDS: guaiFENesin 200 MG TAB PO SCH ×2 (09:00→20:37)
[2021-06-02] MEDS: Dexamethasone 4 mg/ml Vial SLOW IVP SCH ×2 (09:01→20:31)
[2021-06-02] MEDS: Aspirin 325 MG TAB PO SCH (09:01)
[2021-06-02] MEDS: Famotidine 20 MG TAB PO SCH ×2 (09:01→20:37)
[2021-06-02] MEDS: Enoxaparin Sodium 40 MG/0.4 ML SYRINGE SC SCH ×2 (09:01→20:32)
[2021-06-02] MEDS: Cholecalciferol 1,000 UNITS (25 MCG) TAB PO SCH (20:30)
[2021-06-02] MEDS: Melatonin 3 MG TAB PO SCH (20:31)
[2021-06-02] MEDS: clonazePAM 0.5 MG TAB PO PRN (20:32)
[2021-06-03] MEDS: Acetaminophen 325 MG TAB PO PRN ×2 (03:53→22:05)
[2021-06-03] MEDS: Cyclobenzaprine 10 MG TAB PO PRN ×2 (03:53→22:10)
[2021-06-03 04:12] LABS: #Eosinphils 0.1 thou/uL (0.0-0.7); #Lymphocytes 0.8 thou/uL (1.20-3.40); #Neutrophils 10.1 thou/uL (1.40-6.50); %Basophils 0.4 % (0.0-1.0); %Eosinophils 0.6 % (0.0-10.0); %Lymphocytes 6.3 % (21.0-51.0); %Monocytes 8.1 % (0.0-10.0); %Neutrophils 84.7 % (42.0-75.0); Hemoglobin 15.4 g/dL (14.0-18.0); Mean Corpuscular HGB CONC 34.6 g/dL (32.0-36.0); Mean Corpuscular Hemoglobin 30.5 pg (27.0-31.0); Mean Corpuscular Volume 88.2 fL (78.0-98.0); Mean Platelet Volume 9.8 fL (7.4-10.4); Platelet Count 167 thou/uL (130-400); RBC Distribution Width 15.2 % (11.5-14.5); Red Blood Cell (RBC) Count 5.04 mill/uL (4.70-6.10); White Blood Cell (WBC) Count 11.9 thou/uL (4.8-10.8)
[2021-06-03 04:33] LABS: Anion Gap 12 mmol/L (10-20); BUN (Urea Nitrogen) 13 mg/dL (8.9-20.6); Calc. Creatinine Clearance 242 mL/min (70-130); Calcium 9.2 mg/dL (7.8-10.44); Carbon Dioxide 24 mmol/L (22-29); Chloride 104 mmol/L (98-107); Glucose 102 mg/dL (70-105); Potassium 3.9 mmol/L (3.5-5.1); Sodium 136 mmol/L (136-145)
[2021-06-03] MEDS: Zinc Sulfate 220 MG CAP PO SCH (08:43)
[2021-06-03] MEDS: Aspirin 325 MG TAB PO SCH (08:43)
[2021-06-03] MEDS: Dexamethasone 4 mg/ml Vial SLOW IVP SCH ×2 (08:43→20:12)
[2021-06-03] MEDS: Famotidine 20 MG TAB PO SCH ×2 (08:43→20:13)
[2021-06-03] MEDS: Multivitamin W/ Minerals 1 TAB PO SCH (08:43)
[2021-06-03] MEDS: Ascorbic Acid 500 mg Chewable Tablet PO SCH ×2 (08:43→20:11)
[2021-06-03] MEDS: Colchicine 0.6 MG TAB PO SCH ×2 (08:44→20:12)
[2021-06-03] MEDS: Enoxaparin Sodium 40 MG/0.4 ML SYRINGE SC SCH ×2 (08:44→20:12)
[2021-06-03] MEDS: Docusate 100 MG CAP PO SCH ×2 (08:44→20:27)
[2021-06-03] MEDS: guaiFENesin 200 MG TAB PO SCH ×2 (08:45→20:13)
[2021-06-03] MEDS: ALPRAZolam 0.5 MG TAB PO PRN ×2 (16:11→22:09)
[2021-06-03] MEDS: Cholecalciferol 1,000 UNITS (25 MCG) TAB PO SCH (20:11)
[2021-06-03] MEDS: Melatonin 3 MG TAB PO SCH (20:13)
[2021-06-03] MEDS: clonazePAM 0.5 MG TAB PO PRN (22:09)
[2021-06-03] MEDS: Ipratropium Bromide 2.5 ml Neb NEB SCH (23:17)
[2021-06-04] MEDS: Ipratropium Bromide 2.5 ml Neb NEB SCH ×6 (03:50→23:55)
[2021-06-04 05:57] LABS: #Eosinphils 0.1 thou/uL (0.0-0.7); #Monocytes 1.5 thou/uL (0.11-0.59); %Basophils 0.2 % (0.0-1.0); %Eosinophils 0.4 % (0.0-10.0); %Lymphocytes 5.5 % (21.0-51.0); %Monocytes 8.4 % (0.0-10.0); %Neutrophils 85.5 % (42.0-75.0); Hemoglobin 14.3 g/dL (14.0-18.0); Mean Corpuscular HGB CONC 32.4 g/dL (32.0-36.0); Mean Corpuscular Hemoglobin 28.9 pg (27.0-31.0); Mean Corpuscular Volume 89.1 fL (78.0-98.0); Mean Platelet Volume 9.7 fL (7.4-10.4); Platelet Count 187 thou/uL (130-400); RBC Distribution Width 15.3 % (11.5-14.5); Red Blood Cell (RBC) Count 4.96 mill/uL (4.70-6.10); White Blood Cell (WBC) Count 17.5 thou/uL (4.8-10.8)
[2021-06-04 06:21] LABS: Anion Gap 13 mmol/L (10-20); BUN (Urea Nitrogen) 12 mg/dL (8.9-20.6); Calc. Creatinine Clearance 243 mL/min (70-130); Calcium 9.2 mg/dL (7.8-10.44); Carbon Dioxide 22 mmol/L (22-29); Chloride 105 mmol/L (98-107); Glucose 109 mg/dL (70-105); Potassium 3.9 mmol/L (3.5-5.1); Sodium 136 mmol/L (136-145)
[2021-06-04] MEDS: ALPRAZolam 0.5 MG TAB PO PRN (08:00)
[2021-06-04] MEDS: Colchicine 0.6 MG TAB PO SCH ×2 (08:01→20:44)
[2021-06-04] MEDS: Dexamethasone 4 mg/ml Vial SLOW IVP SCH ×2 (08:01→20:45)
[2021-06-04] MEDS: Enoxaparin Sodium 40 MG/0.4 ML SYRINGE SC SCH ×2 (08:02→20:45)
[2021-06-04] MEDS: Famotidine 20 MG TAB PO SCH ×2 (08:02→20:45)
[2021-06-04] MEDS: Ascorbic Acid 500 mg Chewable Tablet PO SCH ×2 (08:02→20:44)
[2021-06-04] MEDS: Multivitamin W/ Minerals 1 TAB PO SCH (08:02)
[2021-06-04] MEDS: Zinc Sulfate 220 MG CAP PO SCH (08:02)
[2021-06-04] MEDS: Aspirin 325 MG TAB PO SCH (08:02)
[2021-06-04] MEDS: Docusate 100 MG CAP PO SCH ×2 (08:03→20:48)
[2021-06-04] MEDS: guaiFENesin 200 MG TAB PO SCH ×2 (09:00→20:46)
[2021-06-04] MEDS: ALPRAZolam 1 MG TAB PO PRN ×2 (15:00→23:55)
[2021-06-04] MEDS: Acetaminophen 325 MG TAB PO PRN ×2 (16:34→21:05)
[2021-06-04] MEDS: Calcium Carbonate 500 MG ChewTAB PO PRN (20:43)
[2021-06-04] MEDS: Cholecalciferol 1,000 UNITS (25 MCG) TAB PO SCH (20:44)
[2021-06-04] MEDS: Melatonin 3 MG TAB PO SCH (20:45)
[2021-06-04] MEDS: clonazePAM 0.5 MG TAB PO PRN (20:50)
[2021-06-04] MEDS: Cyclobenzaprine 10 MG TAB PO PRN (23:58)
[2021-06-05] MEDS: Ipratropium Bromide 2.5 ml Neb NEB SCH ×4 (02:05→14:36)
[2021-06-05] MEDS: Acetaminophen 325 MG TAB PO PRN (05:35)
[2021-06-05 05:53] LABS: #Basophils 0.1 thou/uL (0.0-0.2); #Eosinphils 0.1 thou/uL (0.0-0.7); #Lymphocytes 1.1 thou/uL (1.20-3.40); #Monocytes 1.1 thou/uL (0.11-0.59); %Basophils 0.6 % (0.0-1.0); %Eosinophils 0.4 % (0.0-10.0); %Lymphocytes 7.4 % (21.0-51.0); %Monocytes 6.9 % (0.0-10.0); %Neutrophils 84.7 % (42.0-75.0); Hemoglobin 14.5 g/dL (14.0-18.0); Mean Corpuscular Hemoglobin 29.1 pg (27.0-31.0); Mean Corpuscular Volume 88.1 fL (78.0-98.0); Mean Platelet Volume 9.7 fL (7.4-10.4); Platelet Count 203 thou/uL (130-400); RBC Distribution Width 15.1 % (11.5-14.5); Red Blood Cell (RBC) Count 4.98 mill/uL (4.70-6.10); White Blood Cell (WBC) Count 15.4 thou/uL (4.8-10.8)
[2021-06-05 06:14] LABS: Anion Gap 13 mmol/L (10-20); BUN (Urea Nitrogen) 12 mg/dL (8.9-20.6); Calc. Creatinine Clearance 238 mL/min (70-130); Calcium 9.3 mg/dL (7.8-10.44); Carbon Dioxide 23 mmol/L (22-29); Chloride 104 mmol/L (98-107); Glucose 109 mg/dL (70-105); Potassium 3.7 mmol/L (3.5-5.1); Sodium 136 mmol/L (136-145)
[2021-06-05] MEDS: guaiFENesin 200 MG TAB PO SCH ×2 (08:48→20:06)
[2021-06-05] MEDS: Ascorbic Acid 500 mg Chewable Tablet PO SCH ×2 (08:49→20:04)
[2021-06-05] MEDS: Famotidine 20 MG TAB PO SCH ×2 (08:49→20:06)
[2021-06-05] MEDS: Zinc Sulfate 220 MG CAP PO SCH (08:49)
[2021-06-05] MEDS: Aspirin 325 MG TAB PO SCH (08:49)
[2021-06-05] MEDS: Dexamethasone 4 mg/ml Vial SLOW IVP SCH (08:49)
[2021-06-05] MEDS: Colchicine 0.6 MG TAB PO SCH ×2 (08:49→20:06)
[2021-06-05] MEDS: Multivitamin W/ Minerals 1 TAB PO SCH (08:49)
[2021-06-05] MEDS: Docusate 100 MG CAP PO SCH ×2 (08:49→20:04)
[2021-06-05] MEDS: Enoxaparin Sodium 40 MG/0.4 ML SYRINGE SC SCH ×2 (08:50→20:06)
[2021-06-05] MEDS: ALPRAZolam 1 MG TAB PO PRN ×3 (08:59→22:43)
[2021-06-05] MEDS ORDERED: Dexamethasone 4 MG TAB PO SCH (09:00)
[2021-06-05] MEDS: Calcium Carbonate 500 MG ChewTAB PO PRN (13:07)
[2021-06-05] MEDS: Cholecalciferol 1,000 UNITS (25 MCG) TAB PO SCH (20:05)
[2021-06-05] MEDS: Melatonin 3 MG TAB PO SCH (20:06)
[2021-06-05] MEDS: clonazePAM 0.5 MG TAB PO PRN (21:50)
[2021-06-06] MEDS: Ipratropium Bromide 2.5 ml Neb NEB SCH ×6 (02:18→19:17)
[2021-06-06] MEDS: Acetaminophen 325 MG TAB PO PRN (06:27)
[2021-06-06 06:44] LABS: #Eosinphils 0.1 thou/uL (0.0-0.7); #Lymphocytes 2.2 thou/uL (1.20-3.40); #Monocytes 1.4 thou/uL (0.11-0.59); #Neutrophils 10.4 thou/uL (1.40-6.50); %Basophils 0.2 % (0.0-1.0); %Eosinophils 0.6 % (0.0-10.0); %Lymphocytes 15.8 % (21.0-51.0); %Monocytes 9.7 % (0.0-10.0); %Neutrophils 73.7 % (42.0-75.0); Hemoglobin 13.6 g/dL (14.0-18.0); Mean Corpuscular HGB CONC 34.3 g/dL (32.0-36.0); Mean Corpuscular Hemoglobin 30.6 pg (27.0-31.0); Mean Corpuscular Volume 89.3 fL (78.0-98.0); Mean Platelet Volume 9.3 fL (7.4-10.4); Platelet Count 206 thou/uL (130-400); RBC Distribution Width 15.3 % (11.5-14.5); Red Blood Cell (RBC) Count 4.44 mill/uL (4.70-6.10); White Blood Cell (WBC) Count 14.1 thou/uL (4.8-10.8)
[2021-06-06] MEDS ORDERED: Dexamethasone 4 MG TAB PO SCH (08:00)
[2021-06-06] MEDS: Colchicine 0.6 MG TAB PO SCH ×2 (09:13→20:03)
[2021-06-06] MEDS: Multivitamin W/ Minerals 1 TAB PO SCH (09:13)
[2021-06-06] MEDS: ALPRAZolam 1 MG TAB PO PRN (09:13)
[2021-06-06] MEDS: Famotidine 20 MG TAB PO SCH ×2 (09:13→20:03)
[2021-06-06] MEDS: Docusate 100 MG CAP PO SCH ×2 (09:13→20:05)
[2021-06-06] MEDS: guaiFENesin 200 MG TAB PO SCH ×2 (09:14→20:03)
[2021-06-06] MEDS: Ascorbic Acid 500 mg Chewable Tablet PO SCH ×2 (09:14→20:03)
[2021-06-06] MEDS: Zinc Sulfate 220 MG CAP PO SCH (09:14)
[2021-06-06] MEDS: Aspirin 325 MG TAB PO SCH (09:14)
[2021-06-06] MEDS: Enoxaparin Sodium 40 MG/0.4 ML SYRINGE SC SCH ×2 (09:14→20:05)
[2021-06-06 11:57] VITALS: BMI 25.9
[2021-06-06] MEDS ORDERED: ALPRAZolam 0.5 MG TAB PO PRN (17:00)
[2021-06-06] MEDS: Cyclobenzaprine 10 MG TAB PO PRN (17:13)
[2021-06-06 19:30] VITALS: BP 130/80; TEMP 98.3
[2021-06-06] MEDS: Cholecalciferol 1,000 UNITS (25 MCG) TAB PO SCH (20:03)
[2021-06-06] MEDS: Melatonin 3 MG TAB PO SCH (20:05)
== END 2021-06-06 23:00 | DRG 207 ==
LOC: ERS 11:32 → ERHOLD 14:45 → IMCU/EMU 17:48 → CCU 05-19 13:42 → T4-A 06-03 14:55
PROVIDERS: ADMIT Internal Medicine; ATTEND Internal Medicine
PROC: 8E0ZXY6 Isolation (ICD-10-PCS; 2021-05-04)
PROC: 5A1955Z Respiratory Ventilation, Greater than 96 Consecutive Hours (ICD-10-PCS; principal; 2021-05-22)
PROC: 0BH17EZ Insertion of Endotracheal Airway into Trachea, Via Natural or Artificial Opening (ICD-10-PCS; 2021-05-22)
DX: U07.1 COVID-19 (principal); J12.82 Pneumonia due to coronavirus disease 2019; J80 Acute respiratory distress syndrome; E87.0 Hyperosmolality and hypernatremia; E66.9 Obesity, unspecified; F32.9 Major depressive disorder, single episode, unspecified; F41.0 Panic disorder [episodic paroxysmal anxiety]; D72.829 Elevated white blood cell count, unspecified; T38.0X5A Adverse effect of glucocorticoids and synthetic analogues, initial encounter; J98.2 Interstitial emphysema; K59.00 Constipation, unspecified; Z79.899 Other long term (current) drug therapy; Z68.31 Body mass index [BMI] 31.0-31.9, adult; Z71.3 Dietary counseling and surveillance; Z78.1 Physical restraint status
CPT/HCPCS: 36415; 36416; 36600; 71045; 71275; 80048; 80053; 82728; 82805; 84145; 84484; 85025; 85379; 86140; 87040; 87070; 87086; 87205; 93005; 93010; 94002; 94003; 94640; 94799; 96374; J1100; J1650; J1940; J2060; J2185; J2270; J2543; J2704; J2920; J2930; J3010; J3370; J3490; J7050; J7620; J8540; Q9967

== ENCOUNTER 2021-07-25 12:20 | Outpatient (CLI) | payer MEDICARE | END 2021-07-25 12:21 | disposition home or self-care (01) | LOC: BICRAD 12:20 | PROVIDERS: ATTEND Internal Medicine Critical Care Medicine | DX: U07.1 COVID-19 (principal); R06.00 Dyspnea, unspecified; J12.82 Pneumonia due to coronavirus disease 2019 | CPT/HCPCS: 71046 ==

== ENCOUNTER 2021-08-01 01:06 | Emergency (ER) | payer MEDICARE ==
[2021-08-01 01:57] LABS: Hemoglobin 14.7 g/dL (14.0-18.0); Mean Corpuscular HGB CONC 33.7 g/dL (32.0-36.0); Mean Corpuscular Hemoglobin 29.6 pg (27.0-31.0); Mean Corpuscular Volume 87.9 fL (78.0-98.0); Mean Platelet Volume 9.8 fL (7.4-10.4); Platelet Count 307 thou/uL (130-400); RBC Distribution Width 15.8 % (11.5-14.5); Red Blood Cell (RBC) Count 4.97 mill/uL (4.70-6.10)
[2021-08-01 02:14] LABS: Band 10 % (5-11); Lymphocytes 10 % (21-51); MDiff Complete? YES; Monocytes 16 % (0-10); Neutrophil 64 % (42-75); Platelet Morphology Comment Appears Adequate; RBC Morphology Normal
[2021-08-01 02:19] LABS: ALT (SGPT) 29 U/L (8-55); AST (SGOT) 29 U/L (5-34); Alkaline Phosphatase 77 U/L (40-110); Anion Gap 13 mmol/L (10-20); BUN (Urea Nitrogen) 13 mg/dL (8.9-20.6); Calc. Creatinine Clearance 0 mL/min (70-130); Calcium 9.5 mg/dL (7.8-10.44); Carbon Dioxide 25 mmol/L (22-29); Chloride 110 mmol/L (98-107); Globulin 2.6 g/dL (2.4-3.5); Glucose 106 mg/dL (70-105); Potassium 4.2 mmol/L (3.5-5.1); Protein, Total 6.6 g/dL (6.0-8.3); Sodium 144 mmol/L (136-145)
[2021-08-01] MEDS ORDERED: Iopamidol-370 76% 500 ML 1 ML ONE (10:38)
== END 2021-08-01 04:00 | disposition left against medical advice (07) ==
LOC: ERS 01:06
DX: J84.10 Pulmonary fibrosis, unspecified (principal); R09.02 Hypoxemia; R06.00 Dyspnea, unspecified; J18.9 Pneumonia, unspecified organism
CPT/HCPCS: 71045; 71275; 80053; 83605; 84484; 85025; 93005

== ENCOUNTER 2021-08-01 14:21 | Inpatient (IN) | payer MEDICARE ==
[2021-08-01] MEDS ORDERED: Cefepime 2 GM VIAL ONE (14:45)
[2021-08-01] MEDS ORDERED: Vancomycin 1 GM/200 ML BAG ONE (14:45)
[2021-08-01 15:06] LABS: #Eosinphils 0.1 thou/uL (0.0-0.7); #Lymphocytes 0.9 thou/uL (1.20-3.40); #Monocytes 0.7 thou/uL (0.11-0.59); #Neutrophils 13.2 thou/uL (1.40-6.50); %Basophils 0.3 % (0.0-1.0); %Eosinophils 0.4 % (0.0-10.0); %Monocytes 4.7 % (0.0-10.0); %Neutrophils 88.6 % (42.0-75.0); Hemoglobin 13.7 g/dL (14.0-18.0); Mean Corpuscular HGB CONC 32.9 g/dL (32.0-36.0); Mean Corpuscular Hemoglobin 28.9 pg (27.0-31.0); Mean Corpuscular Volume 87.9 fL (78.0-98.0); Mean Platelet Volume 10.1 fL (7.4-10.4); Platelet Count 253 thou/uL (130-400); RBC Distribution Width 15.6 % (11.5-14.5); Red Blood Cell (RBC) Count 4.73 mill/uL (4.70-6.10); White Blood Cell (WBC) Count 14.9 thou/uL (4.8-10.8)
[2021-08-01 15:35] LABS: ALT (SGPT) 25 U/L (8-55); AST (SGOT) 31 U/L (5-34); Albumin 3.7 g/dL (3.5-5.0); Alkaline Phosphatase 73 U/L (40-110); Anion Gap 14 mmol/L (10-20); BUN (Urea Nitrogen) 9 mg/dL (8.9-20.6); Bilirubin, Total 0.8 mg/dL (0.2-1.2); Calc. Creatinine Clearance 0 mL/min (70-130); Calcium 8.8 mg/dL (7.8-10.44); Carbon Dioxide 19 mmol/L (22-29); Chloride 111 mmol/L (98-107); Globulin 2.6 g/dL (2.4-3.5); Glucose 122 mg/dL (70-105); Potassium 4.4 mmol/L (3.5-5.1); Protein, Total 6.3 g/dL (6.0-8.3); Sodium 140 mmol/L (136-145)
[2021-08-01] MEDS ORDERED: Acetaminophen 325 MG TAB PO PRN (16:34)
[2021-08-01] MEDS ORDERED: Sodium Chloride 0.9% 1,000 ML IV SCH (17:30)
[2021-08-01 17:39] LABS: SARS-CoV-2 NAA Rapid Test Not Detected (NotDetected)
[2021-08-01 18:19] LABS: Bilirubin Negative (Negative); Blood, Urine Negative (Negative); Clarity Clear (Clear); Glucose, Urine (Dipstick) Normal (Negative); Ketone, Urine Negative (Negative); Leukocyte Negative Leu/uL (Negative); Nitrite Negative (Negative); Protein, Urine (Dipstick) Negative (Neg-Trace); Specific Gravity, Urine 1.016 (1.002-1.036); Urobilinogen Normal mg/dL (Less than 2)
[2021-08-01 21:27] VITALS: BMI 28.3
[2021-08-02] MEDS: Enoxaparin Sodium 40 MG/0.4 ML SYRINGE SC SCH (09:24)
[2021-08-02] MEDS ORDERED: Aspirin/APAP/Caffeine Tab (Excedrin Migraine) PO PRN (10:27)
[2021-08-02 10:33] LABS: #Eosinphils 0.1 thou/uL (0.0-0.7); #Lymphocytes 1.8 thou/uL (1.20-3.40); #Monocytes 1.7 thou/uL (0.11-0.59); %Basophils 0.1 % (0.0-1.0); %Eosinophils 0.7 % (0.0-10.0); %Lymphocytes 10.5 % (21.0-51.0); %Monocytes 10.2 % (0.0-10.0); %Neutrophils 78.5 % (42.0-75.0); Hemoglobin 12.7 g/dL (14.0-18.0); Mean Corpuscular HGB CONC 32.5 g/dL (32.0-36.0); Mean Corpuscular Hemoglobin 28.7 pg (27.0-31.0); Mean Corpuscular Volume 88.1 fL (78.0-98.0); Mean Platelet Volume 9.6 fL (7.4-10.4); Platelet Count 255 thou/uL (130-400); RBC Distribution Width 15.7 % (11.5-14.5); Red Blood Cell (RBC) Count 4.43 mill/uL (4.70-6.10); White Blood Cell (WBC) Count 16.6 thou/uL (4.8-10.8)
[2021-08-02 11:05] LABS: Anion Gap 9 mmol/L (10-20); BUN (Urea Nitrogen) 4 mg/dL (8.9-20.6); Calc. Creatinine Clearance 216 mL/min (70-130); Calcium 8.5 mg/dL (7.8-10.44); Carbon Dioxide 23 mmol/L (22-29); Chloride 113 mmol/L (98-107); Glucose 90 mg/dL (70-105); Potassium 3.3 mmol/L (3.5-5.1); Sodium 142 mmol/L (136-145)
[2021-08-02] MEDS ORDERED: D5 1/2 NS w/40 mEq KCL 1,000 ML IV SCH (11:45)
[2021-08-02] MEDS ORDERED: predniSONE 20 MG TAB PO SCH (12:45)
[2021-08-02] MEDS ORDERED: Potassium Chloride 20 MEQ TAB PO SCH (15:15)
[2021-08-02] MEDS: Mometasone 200 MCG/Formoterol 5 MCG 120 PUFF INHALER INH SCH (18:43)
[2021-08-03 07:02] LABS: #Lymphocytes 1.7 thou/uL (1.20-3.40); #Neutrophils 9.3 thou/uL (1.40-6.50); %Basophils 0.2 % (0.0-1.0); %Eosinophils 0.3 % (0.0-10.0); %Lymphocytes 14.3 % (21.0-51.0); %Monocytes 8.2 % (0.0-10.0); Hemoglobin 12.9 g/dL (14.0-18.0); Mean Corpuscular HGB CONC 32.6 g/dL (32.0-36.0); Mean Corpuscular Hemoglobin 28.2 pg (27.0-31.0); Mean Corpuscular Volume 86.5 fL (78.0-98.0); Mean Platelet Volume 9.8 fL (7.4-10.4); Platelet Count 260 thou/uL (130-400); RBC Distribution Width 15.6 % (11.5-14.5); Red Blood Cell (RBC) Count 4.58 mill/uL (4.70-6.10); White Blood Cell (WBC) Count 12.1 thou/uL (4.8-10.8)
[2021-08-03] MEDS: Mometasone 200 MCG/Formoterol 5 MCG 120 PUFF INHALER INH SCH ×2 (07:12→18:14)
[2021-08-03 07:25] LABS: Anion Gap 11 mmol/L (10-20); BUN (Urea Nitrogen) 5 mg/dL (8.9-20.6); Calc. Creatinine Clearance 223 mL/min (70-130); Carbon Dioxide 23 mmol/L (22-29); Chloride 110 mmol/L (98-107); Glucose 91 mg/dL (70-105); Potassium 3.6 mmol/L (3.5-5.1); Sodium 140 mmol/L (136-145)
[2021-08-03] MEDS: predniSONE 20 MG TAB PO SCH (08:09)
[2021-08-03] MEDS: Enoxaparin Sodium 40 MG/0.4 ML SYRINGE SC SCH (08:09)
[2021-08-03] MEDS: guaiFENesin/DM ER PO SCH (21:23)
[2021-08-04 06:43] LABS: #Basophils 0.1 thou/uL (0.0-0.2); #Eosinphils 0.1 thou/uL (0.0-0.7); #Lymphocytes 2.3 thou/uL (1.20-3.40); #Monocytes 0.9 thou/uL (0.11-0.59); #Neutrophils 6.8 thou/uL (1.40-6.50); %Basophils 1.1 % (0.0-1.0); %Lymphocytes 22.6 % (21.0-51.0); %Neutrophils 66.3 % (42.0-75.0); Hemoglobin 12.8 g/dL (14.0-18.0); Mean Corpuscular HGB CONC 32.2 g/dL (32.0-36.0); Mean Corpuscular Hemoglobin 27.7 pg (27.0-31.0); Mean Corpuscular Volume 85.9 fL (78.0-98.0); Mean Platelet Volume 9.3 fL (7.4-10.4); Platelet Count 279 thou/uL (130-400); RBC Distribution Width 15.8 % (11.5-14.5); Red Blood Cell (RBC) Count 4.62 mill/uL (4.70-6.10); White Blood Cell (WBC) Count 10.2 thou/uL (4.8-10.8)
[2021-08-04] MEDS: Mometasone 200 MCG/Formoterol 5 MCG 120 PUFF INHALER INH SCH (06:50)
[2021-08-04 07:04] LABS: Anion Gap 11 mmol/L (10-20); BUN (Urea Nitrogen) 7 mg/dL (8.9-20.6); Calc. Creatinine Clearance 213 mL/min (70-130); Carbon Dioxide 23 mmol/L (22-29); Chloride 110 mmol/L (98-107); Glucose 85 mg/dL (70-105); Potassium 3.3 mmol/L (3.5-5.1); Sodium 141 mmol/L (136-145)
[2021-08-04] MEDS: predniSONE 20 MG TAB PO SCH (07:57)
[2021-08-04] MEDS: guaiFENesin/DM ER PO SCH (07:57)
[2021-08-04] MEDS: Enoxaparin Sodium 40 MG/0.4 ML SYRINGE SC SCH (07:58)
[2021-08-04] MEDS ORDERED: Sulfameth/Trimethoprim DS 800-160mg TAB PO SCH (09:00)
[2021-08-04] MEDS ORDERED: FLU VACC QS2021-22(6MOS UP)/PF 60 MCG/0.5 ML SYRINGE IM ONE (09:00)
[2021-08-04] MEDS: Potassium Chloride 20 MEQ TAB PO SCH ×2 (09:40→11:15)
[2021-08-04 15:33] VITALS: BP 133/92; TEMP 98.1
== END 2021-08-04 15:33 | disposition home or self-care (01) | DRG 871 ==
LOC: ERS 14:21 → T4-A 16:31
PROVIDERS: ADMIT Internal Medicine; ATTEND Internal Medicine
DX: A41.9 Sepsis, unspecified organism (principal); J96.21 Acute and chronic respiratory failure with hypoxia; J15.9 Unspecified bacterial pneumonia; J84.10 Pulmonary fibrosis, unspecified; F41.9 Anxiety disorder, unspecified; K21.9 Gastro-esophageal reflux disease without esophagitis; U09.9 Post COVID-19 condition, unspecified; E87.6 Hypokalemia; Z79.899 Other long term (current) drug therapy; Z79.52 Long term (current) use of systemic steroids
CPT/HCPCS: 0240U; 36415; 71045; 71275; 80048; 80053; 81003; 83605; 84484; 85025; 87040; 87086; 93005; 96365; 96367; J0692; J1650; J1956; J3370; J7050; J7512

== ENCOUNTER 2021-12-26 08:17 | Outpatient (CLI) | payer MEDICARE | END 2021-12-26 08:18 | disposition home or self-care (01) | LOC: BICRAD 08:17 | PROVIDERS: ATTEND Internal Medicine Critical Care Medicine | DX: R06.00 Dyspnea, unspecified (principal) | CPT/HCPCS: 71046 ==

== ENCOUNTER 2022-07-11 13:11 | Outpatient (CLI) | payer MEDICARE | END 2022-07-11 13:12 | disposition home or self-care (01) | LOC: RAD 13:11 | PROVIDERS: ATTEND Internal Medicine Critical Care Medicine | DX: R06.00 Dyspnea, unspecified (principal); J84.10 Pulmonary fibrosis, unspecified | CPT/HCPCS: 71046 ==

== ENCOUNTER 2023-12-25 06:03 | Emergency (ER) | payer MEDICARE ==
[2023-12-25 07:14] LABS: Influenza A by NAA DETECTED (NotDetected); Influenza B by NAA Not Detected (NotDetected); SARS-CoV-2 NAA Rapid Test Not Detected (NotDetected)
== END 2023-12-25 06:31 | disposition home or self-care (01) ==
LOC: ERS 06:03
DX: J10.1 Influenza due to other identified influenza virus with other respiratory manifestations (principal)
CPT/HCPCS: 99283